=== PATIENT | female | born 1965 | race Caucasian/White ===

== ENCOUNTER → 2016-03-21 | Outpatient (CLI) | payer BC, OTHER ==
[~2016-03-21] MED LIST: ALBU1AER9 INH; CETI10TA84 PO; FLVHFA110 INH; MDRDP21 PO; MONT1TAB3 PO; OMEP40CA PO; OMEP40CA41 PO; ONDA4TAB9 PO; SYMIN160 INH; VNTHFA/IN INH
== END | disposition home or self-care (01) ==
LOC: C.RDSM 15:04
PROVIDERS: ATTEND Physical Medicine & Rehabilitation Sports Medicine
DX: M24.152 Other articular cartilage disorders, left hip (principal)

== ENCOUNTER → 2016-04-11 | Outpatient (CLI) | payer BC ==
--- NOTE | 2016-04-12 08:03 | MAMMOGRAPHY REPORT ---
BILATERAL DIGITAL SCREENING MAMMOGRAM TOMOSYNTHESIS WITH CAD: 04/11/2016 CLINICAL HISTORY: Routine screening examination. TECHNIQUE: Breast tomosynthesis in addition to standard 2D mammography was performed. Current study was also evaluated with a Computer Aided Detection (CAD) system. COMPARISON: Comparison is made to exam dated: 04/08/2015 mammogram - [facility]. BREAST COMPOSITION: There are scattered areas of fibroglandular density in both breasts. FINDINGS: The parenchymal pattern is unchanged. No developing mass, architectural distortion or clu ster of suspicious microcalcifications is seen in either breast. IMPRESSION: ACR BI-RADS CATEGORY 2: BENIGN There is no mammographic evidence of malignancy. A 1 year screening mammogram is recommended. The p atient will receive written notification of the results. Approximately 10% of breast cancers are not detected with mammography. A negative mammographic repor t should not delay biopsy if a clinically suggestive mass is present. Celine Roman M.D. ay/:04/11/2016 22:27:05 Corporate Communications Specialist: Janette HOWARD)(Cristobal), [facility] letter sent: Normal 1/2 BI-RADS Code: ACR BI-RADS Category 2: Benign
== END | disposition home or self-care (01) ==
LOC: C.MAMM 16:29
PROVIDERS: ATTEND Obstetrics & Gynecology
DX: Z12.31 Encounter for screening mammogram for malignant neoplasm of breast (principal)

== ENCOUNTER → 2016-05-27 | Outpatient (CLI) | payer BC | END | disposition home or self-care (01) | LOC: C.PATHSPEC 11:08 | PROVIDERS: ATTEND Dentist General Practice | DX: L81.8 Other specified disorders of pigmentation (principal) ==

== ENCOUNTER 2016-07-14 13:32 | Emergency (ER) | payer BC ==
[~2016-07-14] VITALS: Ht 162.6 cm; Wt 104.0 kg
[~2016-07-14 13:32] MED LIST changes: -MDRDP21 PO; -OMEP40CA41 PO; -ONDA4TAB9 PO; -SYMIN160 INH; -VNTHFA/IN INH
[2016-07-14 13:44] VITALS: Ht 162.6 cm; Wt 104.0 kg
[2016-07-14] MEDS ORDERED: SODIUM CHLORIDE 0.9% 1000ML 1,000 ML IV STA (14:37)
--- NOTE | 2016-07-14 14:45 | EMERGENCY ROOM VISIT NOTE ---
History Report prepared by Jean: Zane Frank Under the Supervision of: Dr. Masoud Carolina D.O. First contact with patient: 14:30 Chief Complaint: CHEST PAIN Stated Complaint: CHEST, NECK AND BACK PAIN Nursing Triage Summary: pt c/o midsternal chest pain since last night. today pt c/o heaviness/tightness to chest and pain radiated to neck and left shoulderblade. pt also c/o SOB History of Present Illness The patient is a 50 year old female who presents to the Emergency Room with complaints of persistent chest pain that started last night. She says that she was having a lot of stress in her house last night, as her children were not listening, and there was a lot of yelling. The patient states that she went to bed having a dull, aching pain in her chest, but thought it was just from the stress. She then woke up this morning and was still uncomfortable. She went to work, and had intermittent little sharp pains in her chest, and into her shoulder blades. The patient says that her current pain is a 1 out of 10 in severity. She states that nothing makes the pain worse. She adds that she had a BBQ at work today, and started to feel nauseous and felt like she was going to vomit. The patient says that she got bad sharp pains between her breasts, and was then brought here. She adds that for the past week or so, she has had more shortness of breath with exertion. The patient says that she has a history of asthma, but this shortness of breath is not from her asthma. She denies any fevers, chills, abdominal pain, or new leg pain. The patient says she gets occasional heart palpitations. She has a history of a cholecystectomy. The patient has no history of blood clots. Source of History: patient Onset: Last night Position: chest Symptom Intensity: currently 1/10 Quality: ache, sharp, dull Timing: other (persistent) Associated Symptoms: + SOB (on exertion), + nausea, + back pain, No fevers, No chills, No abdominal pain Note: Associated symptoms: Steele like vomiting after eating earlier today. Denies new leg pain. Review of Systems See HPI for pertinent positives & negatives. A total of 10 systems reviewed and were otherwise negative. Past Medical & Surgical Medical Problems: (1) Asthma (2) Cholecystectomy (3) Heartburn (4) Spontaneous miscarriage (5) Spontaneous miscarriage (6) Tonsillectomy Surgical Problems: (1) History of thyroidectomy, subtotal Family History No pertinent family history Social History Smoking Status: Former Smoker Alcohol Use: occasionally Marital Status: in relationship Housing Status: lives with family Occupation Status: employed Current/Historical Medications Scheduled Albuterol Hfa (Ventolin Hfa), 1-2 PUFFS INH TID Budesonide/Formoterol Fumarate (Symbicort 160/4.5 Inhaler), 2 PUFFS INH BID Cetirizine (Zyrtec), 10 MG PO QPM Methylprednisolone (Methylprednisolone Dose P), 1 DOSE PO UD Montelukast Sodium (Singulair), 10 MG PO QPM Omeprazole (Prilosec), 40 MG PO DAILY Ondansetron (Ondansetron HCl), 1 TAB PO Q6H Allergies Coded Allergies: Adhesives (Verified Allergy, Unknown, red,raw,itchy skin, 07/14/16) Aspirin (Verified Allergy, Unknown, hives, 07/14/16) Penicillins (Unverified Allergy, Unknown, unknown, 07/14/16) Physical Exam Vital Signs Date Time Temp Pulse Resp B/P (MAP) Pulse Ox O2 Delivery O2 Flow Rate FiO2 07/14/16 17:10 37.6 98 20 146/99 95 07/14/16 15:06 125/90 07/14/16 15:02 99 19 07/14/16 14:49 95 Room Air 07/14/16 14:32 98 19 07/14/16 14:20 104 07/14/16 13:44 37.6 102 20 158/85 95 Room Air 07/14/16 13:44 96 Room Air Physical Exam GENERAL: Patient is awake, alert, and in no acute distress. Patient is resting comfortably and showing no signs of anxiety EYES: The conjunctivae are clear. The pupils are round and reactive. EARS, NOSE, MOUTH AND THROAT: The nose is without any evidence of any deformity. Mucous membranes are moist tongue is midline NECK: The neck is nontender and supple. RESPIRATORY: Normal respiratory effort is noted there is no evidence of wheezing rhonchi or rales CARDIOVASCULAR: Heart sounds are tachycardic but regular, no definite murmur noted to auscultation. GASTROINTESTINAL: The abdomen is soft. Bowel sounds are present in all quadrants. Abdomen is nontender MUSCULOSKELETAL/EXTREMITIES: There is no evidence of gross deformity full range of motion is noted in the hips and shoulders SKIN: No pedal edema noted, no calf tenderness elicited. NEUROLOGIC: Patient is awake alert and oriented x3. Medical Decision & Procedures ER Provider Diagnostic Interpretation: Radiology results as stated below per my review and radiologist interpretation: CHEST ONE VIEW PORTABLE CLINICAL HISTORY: Respiratory distress. Dyspnea. COMPARISON STUDY: Chest radiograph and chest CT February 17, 2015. FINDINGS: Lung volumes are normal. There is no consolidation or evidence of pulmonary edema. Cardiac size is normal. Mediastinal contours are normal. There is no evidence of pulmonary edema. IMPRESSION: No acute cardiopulmonary findings. Electronically signed by: Hi Riggs M.D. 07/14/2016 3:06 PM Dictated Date/Time: 07/14/2016 3:[address] ANGIOGRAM OF THE CHEST CLINICAL HISTORY: MIDSTERNAL CHEST PAIN AND SHORTNESS OF BREATH.. COMPARISON STUDY: 02/17/2015 TECHNIQUE: Following the IV administration of 118 mL of Optiray-320, CT angiogram of the thorax was performed from the thoracic inlet to the lung bases utilizing the pulmonary embolus protocol. Images are reviewed in the axial, sagittal, and coronal planes. IV contrast was administered without complication. MIP imaging was performed. CT DOSE: 592.44 mGy.cm FINDINGS: No pathologically enlarged axillary mediastinal or hilar lymph nodes were visualized. There was no evidence of thoracic aortic dilatation. There were no pulmonary artery filling defects to indicate acute pulmonary embolism. No pleural effusions are visualized. There was no evidence of focal pulmonary consolidation. IMPRESSION: No acute intrathoracic findings. No evidence of acute pulmonary embolism. No evidence of acute parenchymal consolidation. Electronically signed by: Best Blacnas M.D. 07/14/2016 3:32 PM Dictated Date/Time: 07/14/2016 3:28 PM Laboratory Results 07/14/16 14:18 Red Blood Count 5.00, Mean Corpuscular Volume 87.8, Mean Corpuscular Hemoglobin 29.6, Mean Corpuscular Hemoglobin Concent 33.7, Mean Platelet Volume 10.9, Neutrophils (%) (Auto) 81.6, Lymphocytes (%) (Auto) 12.4, Monocytes (%) (Auto) 5.4, Eosinophils (%) (Auto) 0.1, Basophils (%) (Auto) 0.3, Neutrophils # (Auto) 10.41, Lymphocytes # (Auto) 1.58, Monocytes # (Auto) 0.69, Eosinophils # (Auto) 0.01, Basophils # (Auto) 0.04 07/14/16 14:18 Test 07/14/16 00:00 07/14/16 14:18 07/14/16 14:21 07/14/16 14:49 Urine Color YELLOW Urine Appearance CLEAR (CLEAR) Urine pH 6.5 (4.5-7.5) Urine Specific [place] > 1.045 (1.000-1.030) Urine Protein NEG (NEG) Urine Glucose (UA) NEG (NEG) Urine Ketones NEG (NEG) Urine Occult Blood NEG (NEG) Urine Nitrite NEG (NEG) Urine Bilirubin NEG (NEG) Urine Urobilinogen NEG (NEG) Urine Leukocyte Esterase TRACE (NEG) Urine WBC (Auto) 10-30 /hpf (0-5) Urine RBC (Auto) 0-4 /hpf (0-4) Urine Hyaline Casts (Auto) 1-5 /lpf (0-5) Urine Epithelial Cells (Auto) >30 /lpf (0-5) Urine Bacteria (Auto) 1+ (NEG) White Blood Count 12.76 K/uL (4.8-10.8) Red Blood Count 5.00 M/uL (4.2-5.4) Hemoglobin 14.8 g/dL (12.0-16.0) Hematocrit 43.9 % (37-47) Mean Corpuscular Volume 87.8 fL (80-100) Mean Corpuscular Hemoglobin 29.6 pg (25-34) Mean Corpuscular Hemoglobin Concent 33.7 g/dl (32-36) Platelet Count 324 K/uL (130-400) Mean Platelet Volume 10.9 fL (7.4-10.4) Neutrophils (%) (Auto) 81.6 % Lymphocytes (%) (Auto) 12.4 % Monocytes (%) (Auto) 5.4 % Eosinophils (%) (Auto) 0.1 % Basophils (%) (Auto) 0.3 % Neutrophils # (Auto) 10.41 K/uL (1.4-6.5) Lymphocytes # (Auto) 1.58 K/uL (1.2-3.4) Monocytes # (Auto) 0.69 K/uL (0.11-0.59) Eosinophils # (Auto) 0.01 K/uL (0-0.5) Basophils # (Auto) 0.04 K/uL (0-0.2) RDW Standard Deviation 42.3 fL (36.4-46.3) RDW Coefficient of Variation 13.1 % (11.5-14.5) Immature Granulocyte % (Auto) 0.2 % Immature Granulocyte # (Auto) 0.03 K/uL (0.00-0.02) Prothrombin Time 11.4 SECONDS (9.0-12.0) Prothromb Time International Ratio 1.1 (0.9-1.1) Activated Partial Thromboplast Time 25.5 SECONDS (21.0-31.0) Partial Thromboplastin Ratio 1.0 Anion Gap 10.0 mmol/L (3-11) Est Creatinine Clear Calc Drug Dose 67.4 ml/min Estimated GFR () 61.9 Estimated GFR (Non- 53.4 BUN/Creatinine Ratio 12.9 (10-20) Calcium Level 8.2 mg/dl (8.5-10.1) Total Bilirubin 0.3 mg/dl (0.2-1) Aspartate Amino Transf (AST/SGOT) 16 U/L (15-37) Alanine Aminotransferase (ALT/SGPT) 28 U/L (12-78) Alkaline Phosphatase 97 U/L (45-117) Troponin I < 0.015 ng/ml (0-0.045) Total Protein 7.7 gm/dl (6.4-8.2) Albumin 3.7 gm/dl (3.4-5.0) Globulin 4.0 gm/dl (2.5-4.0) Albumin/Globulin Ratio 0.9 (0.9-2) Human Chorionic Gonadotropin, Qual NEG (NEG) Bedside Troponin I < 0.030 ng/ml (0-0.045) Bedside D-Dimer > 450 ng/mlFEU (0-450) Laboratory results per my review. Medications Administered Medications (Trade) Dose Ordered Sig/Tolu Route Start Time Stop Time Status Last Admin Dose Admin Sodium Chloride 1,000 ml @ 999 mls/hr Q1H1M STAT IV 07/14/16 14:37 07/14/16 15:37 DC 07/14/16 14:37 999 MLS/HR ECG Indication: chest pain Rate (beats per minute): 106 Rhythm: sinus tachycardia Findings: no ectopy, other (no acute ST segment abnormalities) Comparison ECG Date: increased rate otherwise no significant change from January 10 of last year ED Course 1432: The patient was evaluated in room C2B. A complete history and physical examination were performed. 1437: Ordered NSS 1000 ml @ 999 mls/hr IV. 1557: I reevaluated the patient and updated her. 165: Upon reevaluation, the patient is resting comfortably. I discussed the results and treatment plan with her. She verbalized agreement of the treatment plan. She was discharged home. Medical Decision Prior records/ancillary studies reviewed. Triage Nursing notes reviewed. Differential diagnosis: Etiologies such as cardiac ischemia, aortic dissection, pulmonary embolism, pneumonia, pneumothorax, musculoskeletal, infections, pericarditis, myocarditis , esophageal rupture, gastrointestinal, as well as others were entertained. Medication Reconciliation: I attest that I have personally reviewed the patient' s current medications list. Blood pressure screening: Patient was found to have normal blood pressure on screening and does not require follow-up. The patient has a heart score of 2. The patient is a 50-year-old female who presented to the emergency department for evaluation of chest pain. The patient states that she had significant anxiety and afterwards noticed an onset of chest pain. The patient had symptoms for greater than 24 hours. The patient was treated with IV fluids in the emergency department. She was reevaluated multiple times. The patient also complained of chest pain which was worsened with inspiration. This reason a d- dimer was ordered which was elevated. CT the chest did not show any acute pulmonary embolism. I discussed the patient's laboratory and radiographic studies with her. I also discussed the limitations of the emergency department workup for chest pain with her. At this time I feel she is low risk. I feel she can follow-up with with her primary care physician as an outpatient and then further cardiac study if necessary. She was encouraged to avoid any strenuous activity and return to emergency department immediately if symptoms change worsen or the need arises. Impression Primary Impression: Chest pain Scribe Attestation The scribe's documentation has been prepared under my direction and personally reviewed by me in its entirety. I confirm that the note above accurately reflects all work, treatment, procedures, and medical decision making performed by me. Departure Information Dispostion Home / Self-Care Referrals Vinicius Meeks, Jacinto.[facility]. (PCP) Patient Instructions ED Chest Pain Atypical Unkn Cause, My [facility] Additional Instructions Follow-up with your primary care physician tomorrow as scheduled. Rest and avoid any strenuous activity. Return to the emergency department immediately if symptoms change worsen or the need arises. Problem Qualifiers Primary Impression: Chest pain Chest pain type: unspecified Qualified Codes: R07.9 - Chest pain, unspecified
[2016-07-14 14:46] LABS: BASO % 0.3 %; BASO ABS # 0.04 K/uL (0-0.2); COMPLETE YES; EOS % 0.1 %; HEMATOCRIT 43.9 % (37-47); IG% 0.2 %; LYMPH % 12.4 %; LYMPH ABS # 1.58 K/uL (1.2-3.4); MEAN CELL VOLUME 87.8 fL (80-100); MEAN CORPUSCULAR HEMOGLOBIN 29.6 pg (25-34); MEAN CORPUSCULAR HGB CONC 33.7 g/dl (32-36); MEAN PLATELET VOLUME 10.9 fL (7.4-10.4); MONO % 5.4 %; NEUT % 81.6 %; PLATELET COUNT 324 K/uL (130-400); WHITE BLOOD COUNT 12.76 K/uL (4.8-10.8)
[2016-07-14 14:49] VITALS: O2SAT 95
[2016-07-14 14:52] LABS: PREG INTERNAL NEGATIVE QC NEG CLEAR BACKGROUND; PREG INTERNAL POSITIVE QC POS CONTROL LINE
[2016-07-14 14:53] LABS: ALT/SGPT 28 U/L (12-78); AST/SGOT 16 U/L (15-37); BLOOD UREA NITROGEN 15 mg/dl (7-18); BUN/CREATININE RATIO 12.9 (10-20); CALCIUM 8.2 mg/dl (8.5-10.1); CARBON DIOXIDE 25 mmol/L (21-32); CHLORIDE 109 mmol/L (98-107); GLUCOSE 116 mg/dl (70-99); POTASSIUM 3.5 mmol/L (3.5-5.1); SODIUM 144 mmol/L (136-145)
[2016-07-14 14:58] LABS: ALB/GLOB RATIO 0.9 (0.9-2); ALKALINE PHOSPHATASE 97 U/L (45-117)
[2016-07-14 14:59] LABS: INR 1.1 (0.9-1.1); PROTHROMBIN TIME (PATIENT) 11.4 SECONDS (9.0-12.0)
[2016-07-14] MEDS ORDERED: OMEP40CA41 PO (15:03)
[2016-07-14] MEDS ORDERED: ONDA4TAB9 PO (15:03)
[2016-07-14] MEDS ORDERED: VNTHFA/IN INH (15:03)
[2016-07-14] MEDS ORDERED: SYMIN160 INH (15:03)
[2016-07-14] MEDS ORDERED: MDRDP21 PO (15:04)
--- NOTE | 2016-07-14 15:07 | DIAGNOSTIC IMAGING REPORT ---
CHEST ONE VIEW PORTABLE CLINICAL HISTORY: Respiratory distress. Dyspnea. COMPARISON STUDY: Chest radiograph and chest CT February 17, 2015. FINDINGS: Lung volumes are normal. There is no consolidation or evidence of pulmonary edema. Cardiac size is normal. Mediastinal contours are normal. There is no evidence of pulmonary edema. IMPRESSION: No acute cardiopulmonary findings. Electronically signed by: Hi Riggs M.D. 07/14/2016 3:06 PM Dictated Date/Time: 07/14/2016 3:05 PM
[2016-07-14] MEDS ORDERED: OPTIRAY 320 IV PRN (15:15)
--- NOTE | 2016-07-14 15:33 | DIAGNOSTIC IMAGING REPORT ---
CT ANGIOGRAM OF THE CHEST CLINICAL HISTORY: MIDSTERNAL CHEST PAIN AND SHORTNESS OF BREATH.. COMPARISON STUDY: 02/17/2015 TECHNIQUE: Following the IV administration of 118 mL of Optiray-320, CT angiogram of the thorax was performed from the thoracic inlet to the lung bases utilizing the pulmonary embolus protocol. Images are reviewed in the axial, sagittal, and coronal planes. IV contrast was administered without complication. MIP imaging was performed. CT DOSE: 592.44 mGy.cm FINDINGS: No pathologically enlarged axillary mediastinal or hilar lymph nodes were visualized. There was no evidence of thoracic aortic dilatation. There were no pulmonary artery filling defects to indicate acute pulmonary embolism. No pleural effusions are visualized. There was no evidence of focal pulmonary consolidation. IMPRESSION: No acute intrathoracic findings. No evidence of acute pulmonary embolism. No evidence of acute parenchymal consolidation. Electronically signed by: Best Blancas M.D. 07/14/2016 3:32 PM Dictated Date/Time: 07/14/2016 3:28 PM
[2016-07-14 17:09] LABS: URINE APPEARANCE CLEAR (CLEAR); URINE BILIRUBIN NEG (NEG); URINE COLOR YELLOW; URINE EPITHELIAL CELL AUTO >30 /lpf (0-5); URINE NITRITE NEG (NEG); URINE PH 6.5 (4.5-7.5); URINE SPECIFIC GRAVITY > 1.045 (1.000-1.030); UROBILINOGEN NEG (NEG)
[2016-07-14 17:10] VITALS: BP 146/99; PULSE 98; TEMP 37.6; O2SAT 95
[2016-07-14 17:17] LABS: MANUAL MICROSCOPIC REQUIRED? NO; REVIEW REQ? NO
== END 2016-07-14 17:11 | disposition home or self-care (01) ==
LOC: C.EDB 13:35 → C.EDC 17:11
DX: R07.9 Chest pain, unspecified (principal); R00.0 Tachycardia, unspecified; J45.909 Unspecified asthma, uncomplicated; Z90.49 Acquired absence of other specified parts of digestive tract; Z98.890 Other specified postprocedural states; Z87.891 Personal history of nicotine dependence; Z79.899 Other long term (current) drug therapy; Z88.0 Allergy status to penicillin; Z88.6 Allergy status to analgesic agent; Z91.09 Other allergy status, other than to drugs and biological substances

== ENCOUNTER → 2017-03-05 | Outpatient (CLI) | payer OTHER ==
[~2017-03-05] MED LIST changes: -ALBU1AER9 INH; -FLVHFA110 INH; +MDRDP21 PO; -OMEP40CA PO; +OMEP40CA41 PO; +ONDA4TAB9 PO; +SYMIN160 INH; +VNTHFA/IN INH
--- NOTE | 2017-03-05 14:38 | DIAGNOSTIC IMAGING REPORT ---
THORACIC SPINE 3 VIEWS ROUTINE CLINICAL HISTORY: RIGHT LUMBAR PAIN,LOW BACK PAIN COMPARISON STUDY: Chest CT July 14, 2016. FINDINGS: Alignment of the thoracic spine is anatomic. Vertebral body heights are maintained. Disc spaces are preserved. There is mild multilevel endplate osteophytosis. IMPRESSION: 1. No acute thoracic spine fracture or subluxation. 2. Minimal multilevel degenerative disc disease of the thoracic spine. Electronically signed by: Hi Riggs M.D. 03/05/2017 2:37 PM Dictated Date/Time: 03/05/2017 2:35 PM
--- NOTE | 2017-03-05 14:39 | DIAGNOSTIC IMAGING REPORT ---
L-SPINE MIN 4 VIEWS ROUTINE CLINICAL HISTORY: RIGHT LUMBAR PAIN,LOW BACK PAIN COMPARISON: None FINDINGS: Incidental note is made of cholecystectomy clips and an intrauterine device. Vertebral body heights are maintained. No fracture or suspicious lesion is present. There is mild disc space narrowing and osteophytosis at L5-S1. There is mild multilevel osteophytosis within the lumbar spine. IMPRESSION: 1. No lumbar spine fracture. 2. Mild multilevel degenerative disc disease. Electronically signed by: Hi Riggs M.D. 03/05/2017 2:38 PM Dictated Date/Time: 03/05/2017 2:37 PM
== END | disposition home or self-care (01) ==
LOC: C.RAD 13:30
PROVIDERS: ATTEND Student in an Organized Health Care Education/Training Program
DX: M54.5 Low back pain (principal); M51.36 Other intervertebral disc degeneration, lumbar region; M51.34 Other intervertebral disc degeneration, thoracic region

== ENCOUNTER → 2017-03-08 | Outpatient (CLI) | payer OTHER | END | disposition home or self-care (01) | LOC: C.LABSPEC 13:39 | PROVIDERS: ATTEND Obstetrics & Gynecology | DX: N89.8 Other specified noninflammatory disorders of vagina (principal) ==

== ENCOUNTER → 2017-03-08 | Outpatient (CLI) | payer OTHER | END | disposition home or self-care (01) | LOC: C.PAPS 11:32 | PROVIDERS: ATTEND Obstetrics & Gynecology | DX: Z12.4 Encounter for screening for malignant neoplasm of cervix (principal) ==

== ENCOUNTER → 2017-05-01 | Day surgery (SDC) | payer OTHER ==
[2017-04-04 15:13] VITALS: Ht 162.6 cm; Wt 106.8 kg
[~2017-05-01] VITALS: Ht 162.6 cm; Wt 106.8 kg
[~2017-05-01] MED LIST changes: +ALBU18002 INH; +ATROPINE SULFATE 0.1 MG/ML 5ML SYR IV PRN; +DEXAMETHASONE SOD INJ 4 MG/ML VIAL ONE; +EpHEDrine SULFATE INJ 50 MG/ML AMP IV PRN; +FENTANYL CITRATE INJ 50 MCG/1 ML 2 ML VIAL ONE; +HYDROmorphone INJ 1 MG/ML SYR IV PRN; +IBUPROFEN 600 MG TAB PO PRN; +KETOROLAC TROMETHAMINE 30 MG/ML VIAL IV. PRN; +KETOROLAC TROMETHAMINE 30 MG/ML VIAL ONE; +LABETALOL HCL IV 5 MG/ML 20ML IV PRN; +LACTATED RINGER'S 1000ML 1,000 ML IV SCH; +LIDOCAINE HCL 2% 2 ML VIAL (20MG/ML) ONE; +LISI40TA PO; -MDRDP21 PO; +MELA1TAB5 PO; +MIDAZOLAM HCL 1 MG/ML 2ML VIAL ONE; -ONDA4TAB9 PO; +ONDANSETRON INJ 2 MG/ML 2 ML VIAL IV PRN; +ONDANSETRON INJ 2 MG/ML 2 ML VIAL ONE; +OXYCODONE/ACETAMINOPHEN 5-325 TAB PO PRN; +PHENYLEPHRINE 100MCG/ML 5ML SYR IV PRN; +PROMETHAZINE HCL INJ 12.5 MG in SODIUM CHLORIDE 0.9% 50ML 50 ML IV PRN; +PROMETHAZINE HCL INJ 25 MG in SODIUM CHLORIDE 0.9% 50ML 50 ML IV PRN; +PROPOFOL IV EMULSION 10 MG/ML 20 ML VIAL IV ONE; +SODIUM CHLORIDE 0.9% 1000ML 1,000 ML IV SCH; +SUCCINYLCHOLINE CHLORIDE 20 MG/ML 10 ML VIAL IV ONE; -VNTHFA/IN INH
--- NOTE | 2017-05-01 06:59 | History & Physical Bridge - SC ---
H&P Re-Evaluation Bridge Note: I have examined the patient, reviewed the History & Physical and in the interval since the performance of the History & Physical I have noted the following changes of clinical significance: No changes noted
--- NOTE | 2017-05-01 07:34 | [facility] Post Operative Brief Note ---
Immediate Operative Summary Operative Date May 01, 2017. Pre-Operative Diagnosis IUD strings lost Post-Operative Diagnosis SAME Procedure(s) Performed Dilatation And Curettage, Hysteroscopy, Removal Of Intra Uterine Device Surgeon Dr. Colon Associate Editor Surgeon(s) none Estimated Blood Loss 5 cc Findings Consistent with Post-Op Diagnosis Specimens A:Endometrial Curettings Drains None Anesthesia Type General Complication(s) none Disposition Accompanied Pt To Recovery: yes Disposition: Recovery Room / PACU
--- NOTE | 2017-05-01 07:47 | Discharge Instructions-SurgCtr ---
Discharge Instructions Date of Service May 01, 2017. Visit Reason for Visit: Iud Strings Lost Discharge Discharge Diagnosis / Problem: Lost IUD strings Discharge Goals Goal(s): Therapeutic intervention Activity Recommendations Activity Limitations: per Instructions/Follow-up section Anesthesia . Post Anesthesia Instructions: If you have had General Anesthesia or IV Sedation: * Do not drive today. * Resume driving when surgeon permits. * Do not make important decisions or sign legal documents today. * Call surgeon for: 1. Temperature elevations greater than 101 degrees F. 2. Uncontrollable pain. 3. Excessive bleeding. 4. Persistent nausea and vomiting. 5. Medication intolerance (nausea, vomiting or rash). * For nausea and vomiting use only clear liquids such as: tea, soda, bouillon until nausea subsides, then gradually increase diet as tolerated. * If you have any concerns or questions, call your surgeon's office. If physician is unavailable and it is an emergency, call 911 or go to the nearest emergency room. . Instructions / Follow-Up Instructions / Follow-Up ACTIVITY RECOMMENDATIONS: * Avoid tampons, douching, hot tubs, pools, and intercourse until bleeding has stopped. * May shower as usual. * No strenuous activity for 24-48 hours. After 24-48 hours, you may do anything you feel like doing (driving and sports are okay). SPECIAL CARE INSTRUCTIONS: Special Diet: * Mild nausea may occur in the immediate post-operative period. * Take clear liquids such as tea, cola or bouillon until all nausea has subsided; you may then resume your normal diet. Special Care: * Light bleeding and vaginal spotting can last from a few days to 3-4 weeks. Call your doctor if bleeding becomes heavier than the heaviest part of your period. * Check your temperature twice a day for one week. If it goes above 100.4 degrees Fahrenheit (38.0 Celsius), notify your doctor. * Call your doctor's office for an appointment for 6 weeks after your surgery. FOLLOW-UP VISIT: Call your doctor's office for an appointment for 6 weeks after your surgery. Diet Recommendations Home Diet: resume previous diet Procedures Procedures Performed: Dilatation And Curettage, Hysteroscopy, Removal Of Intra Uterine Device Pending Studies Studies pending at discharge: no Medical Emergencies . Who to Call and When: Medical Emergencies: If at any time you feel your situation is an emergency, please call 911 immediately. . Non-Emergent Contact Non-Emergency issues call your: [employer] . . "Provider Documentation" section prepared by Layne Antunez .
[2017-05-01] MEDS: FENTANYL CITRATE INJ 50 MCG/1 ML 2 ML VIAL IV PRN ×2 (07:48→08:00)
--- NOTE | 2017-05-01 08:15 | OPERATIVE REPORT ---
DATE OF OPERATION: 05/01/2017 PREOPERATIVE DIAGNOSES: Lost intrauterine device strings and abnormal uterine bleeding. POSTOPERATIVE DIAGNOSES: Same. PROCEDURE: Removal of IUD, D&C and hysteroscopy. ANESTHESIA: General. BLOOD LOSS: 5 mL. HISTORY OF PRESENT ILLNESS: The patient is a 51-year-old multiparous white female who presented with a history of irregular bleeding and also questionable symptoms of pseudotumor cerebri so she is requesting removal of the IUD; however, in the office the IUD strings could not be found. Apparently there is an association between pseudotumor cerebri and Mirena IUDs. She is now scheduled for IUD removal and D&C hysteroscopy as the patient has been having more irregular erratic spotting and bleeding issues. She understands the risks of procedure and is willing to proceed. GROSS FINDINGS: Uterus is small, mobile and without any masses. The adnexa are also without masses. There is a second degree cystocele present. Cervix is somewhat stenotic. Under direct hysteroscopic evaluation, the uterine cavity was noted to be normal. Both tubal os's could be identified and were in normal position. The hysteroscopy and D&C were done after the IUD removal. DESCRIPTION OF THE PROCEDURE: After the patient received adequate general anesthetic, she was prepped and draped in usual sterile fashion. After bladder was emptied, a weighted speculum was placed in the vagina and the anterior lip of the cervix was grasped with single tooth tenaculum. The cervix was then dilated to a #21 Hanks dilator. Polyp forceps were then used to grasp the IUD and it was removed in its entirety. The hysteroscope was then inserted and findings were noted as above. Sharp curettage of the uterine cavity was then performed and small amount of curettings were obtained. Bleeding at the tenaculum site was secured with an Allis clamp. The patient tolerated the procedure well. There was a 45 mL deficit of normal saline that was used as expanding medium during the hysteroscopy. I attest to the content of the Intraoperative Record and any orders documented therein. Any exception s are noted below.
[2017-05-01 08:45] VITALS: TEMP 37.3
--- NOTE | 2017-05-01 08:57 | Anesthesia Progress Nt - [facility] ---
Anesthesia Post Op Note Date & Time May 01, 2017 at 08:57 Vital Signs Pain Intensity: 0 Vital Signs Past 12 Hours Date Time Temp Pulse Resp B/P (MAP) Pulse Ox O2 Delivery O2 Flow Rate FiO2 05/01/17 08:27 74 22 05/01/17 08:27 74 22 94 05/01/17 08:26 145/68 05/01/17 08:23 36.7 83 20 118/79 94 Room Air 05/01/17 08:22 83 21 05/01/17 08:22 82 21 94 05/01/17 08:21 118/79 05/01/17 08:17 69 15 05/01/17 08:17 68 15 93 05/01/17 08:16 116/78 05/01/17 08:12 71 15 93 05/01/17 08:12 73 15 05/01/17 08:11 142/78 05/01/17 08:07 77 15 97 05/01/17 08:07 77 15 05/01/17 08:06 114/77 05/01/17 08:02 82 16 05/01/17 08:02 82 16 100 05/01/17 08:01 125/74 05/01/17 07:57 79 27 99 05/01/17 07:57 78 27 05/01/17 07:56 111/73 05/01/17 07:53 129/77 05/01/17 07:52 88 25 99 05/01/17 07:52 87 25 05/01/17 07:47 94 21 05/01/17 07:47 93 21 136/77 98 05/01/17 07:42 86 20 131/75 98 05/01/17 07:42 87 20 05/01/17 07:39 144/88 05/01/17 07:37 37.0 97 20 144/88 97 Mask 6 05/01/17 06:40 36.9 85 16 134/94 (107) 95 Room Air Notes Mental Status: alert / awake / arousable, participated in evaluation Pt Amnestic to Procedure: Yes Nausea / Vomiting: adequately controlled Pain: adequately controlled Airway Patency, RR, SpO2: stable & adequate BP & HR: stable & adequate Hydration State: stable & adequate Anesthetic Complications: no major complications apparent
[2017-05-01 09:17] VITALS: BP 146/88; PULSE 73; O2SAT 99
== END | disposition home or self-care (01) ==
LOC: X.SURG 06:17
PROVIDERS: ATTEND Obstetrics & Gynecology
DX: T83.32XA Displacement of intrauterine contraceptive device, initial encounter (principal); Y83.1 Surgical operation with implant of artificial internal device as the cause of abnormal reaction of the patient, or of later complication, without mention of misadventure at the time of the procedure; I10 Essential (primary) hypertension; K21.9 Gastro-esophageal reflux disease without esophagitis; J45.909 Unspecified asthma, uncomplicated; G47.33 Obstructive sleep apnea (adult) (pediatric); E55.9 Vitamin D deficiency, unspecified; E66.9 Obesity, unspecified; Z68.41 Body mass index [BMI] 40.0-44.9, adult; Z87.891 Personal history of nicotine dependence; Z88.6 Allergy status to analgesic agent; Z88.0 Allergy status to penicillin; Z88.5 Allergy status to narcotic agent; Z83.3 Family history of diabetes mellitus; Z82.3 Family history of stroke

== ENCOUNTER 2020-10-07 05:08 | Observation (INO) ==
--- NOTE | 2020-09-28 10:55 | PAT Medication Instructions ---
Medication Instructions Date of Service September 28, 2020 Home Medications Medication Instructions Recorded budesonide-formoterol HFA 160 2 puff INHALATION BID #10.2 g 12/23/19 mcg-4.5 mcg/actuation aerosol inhaler montelukast 10 mg tablet 10 mg PO HS #90 tab 01/01/20 omeprazole 40 mg capsule,delayed 40 mg PO HS #90 cap 01/01/20 release bupropion HCl 150 mg 24 hr tablet, 300 mg PO QAM #60 tab 08/03/20 extended release (Wellbutrin XL) levothyroxine 75 mcg tablet 75 mcg PO QAM #30 tab 08/04/20 ProAir HFA 90 mcg/actuation 2 puff INHALATION Q4H PRN #8.5 g NS 08/18/20 aerosol inhaler (albuterol sulfate) cetirizine 10 mg tablet (Zyrtec) 10 mg PO HS budesonide-formoterol HFA 160 mcg-4.5 mcg/actuation aerosol inhaler 2 puff INHALATION BID montelukast 10 mg tablet 10 mg PO HS omeprazole 40 mg capsule,delayed release 40 mg PO HS clobetasol 0.05 % topical ointment 1 applic TOPICAL UD PRN valacyclovir 500 mg tablet (Valtrex) 500 mg PO QAM methocarbamol 750 mg tablet 750 mg PO UD PRN bupropion HCl 150 mg 24 hr tablet, extended release (Wellbutrin XL) 300 mg PO QAM levothyroxine 75 mcg tablet 75 mcg PO QAM ProAir HFA 90 mcg/actuation aerosol inhaler (albuterol sulfate) 2 puff INHALATION Q4H PRN STOP taking 24 hours before surgery clobetasol 0.05 % topical ointment 1 applic TOPICAL UD PRN DO NOT take the morning of surgery methocarbamol 750 mg tablet 750 mg PO UD PRN Take morning of surgery With a small sip of water, OTHERWISE NOTHING TO EAT OR DRINK AFTER MIDNIGHT: budesonide-formoterol HFA 160 mcg-4.5 mcg/actuation aerosol inhaler 2 puff INHALATION BID valacyclovir 500 mg tablet (Valtrex) 500 mg PO QAM bupropion HCl 150 mg 24 hr tablet, extended release (Wellbutrin XL) 300 mg PO QAM levothyroxine 75 mcg tablet 75 mcg PO QAM ProAir HFA 90 mcg/actuation aerosol inhaler (albuterol sulfate) 2 puff INHALATION Q4H PRN (if needed) Take evening before surgery cetirizine 10 mg tablet (Zyrtec) 10 mg PO HS budesonide-formoterol HFA 160 mcg-4.5 mcg/actuation aerosol inhaler 2 puff INHALATION BID montelukast 10 mg tablet 10 mg PO HS omeprazole 40 mg capsule,delayed release 40 mg PO HS methocarbamol 750 mg tablet 750 mg PO UD PRN (if needed) ProAir HFA 90 mcg/actuation aerosol inhaler (albuterol sulfate) 2 puff INHALATION Q4H PRN (if needed) Other Notes If you have any questions please call us at [phone] or [phone] or [phone] or [phone]
--- NOTE | 2020-09-29 08:21 | Anesthesiology Consultation ---
Date of Service September 29, 2020 Assessment & Plan (1) Encounter for pre-operative examination: - COVID screening: Per assessment on 09/29: Travel screen negative, no known COVID-19 positive contacts or current COVID-19 related symptoms. Patient vaccinated. Surgeon arranging preop COVID testing. Awaiting results. - S/P D&C, hysteroscopy (05/21/20): LMA#4 at [facility] [place] - Check test AM DOS - Patient concern: Patient does not wish to hear tools perioperatively if possible. Discussed GA vs. SAB. Anesthesia to be discussed further AM DOS. Chart Review Chart Review: Acceptable Risk for Surgery (pending surgeon-ordered PCP clearance) and Patient seen in Pre Admission Testing Teaching & Discussion Pre-Anesthesia Teaching/Discussion Notes: Instructed NPO after midnight before surgery,except medications with 15 cc of water. Medication instructions provided according to the PAT guidelines. History Surgery Operation Date: 12/23/20 09:00 Proposed Procedures p Left Total Hip Arthroplasty Dual Mobility - Trace Hodge MD Height/Weight Height: 5 ft 4 in Weight: 100.3 kg Allergies Allergy/AdvReac Type Severity Reaction Status Date / Time adhesive tape Allergy Unknown Rash Verified 09/28/20 10:03 aspirin Allergy Unknown Hives, Verified 09/28/20 10:56 asthma symptoms celecoxib [From Celebrex] Allergy Unknown Hives Verified 09/28/20 10:03 meloxicam [From Mobic] Allergy Unknown Difficulty Verified 09/28/20 10:03 Breathing Penicillins Allergy Unknown Unknown Verified 09/28/20 10:03 reaction Medications Home Medications Medication Instructions Recorded Confirmed Last Taken cetirizine 10 mg tablet (Zyrtec) 10 mg PO HS 12/01/17 09/28/20 05/20/20 budesonide-formoterol HFA 160 2 puff INHALATION BID #10.2 g 12/23/19 09/28/20 05/20/20 mcg-4.5 mcg/actuation aerosol inhaler montelukast 10 mg tablet 10 mg PO HS #90 tab 01/01/20 09/28/20 05/20/20 omeprazole 40 mg capsule,delayed 40 mg PO HS #90 cap 01/01/20 09/28/20 05/20/20 release clobetasol 0.05 % topical ointment 1 applic TOPICAL UD PRN 02/12/20 09/28/20 Unknown valacyclovir 500 mg tablet 500 mg PO QAM 02/12/20 09/28/20 05/20/20 (Valtrex) methocarbamol 750 mg tablet 750 mg PO UD PRN 03/31/20 09/28/20 Unknown bupropion HCl 150 mg 24 hr tablet, 300 mg PO QAM #60 tab 08/03/20 09/28/20 Unknown extended release (Wellbutrin XL) levothyroxine 75 mcg tablet 75 mcg PO QAM #30 tab 08/04/20 09/28/20 Unknown ProAir HFA 90 mcg/actuation 2 puff INHALATION Q4H PRN #8.5 g NS 08/18/20 09/28/20 Unknown aerosol inhaler (albuterol sulfate) Past Medical History Medical History Anxiety Arthritis hips Asthma stable Degenerative disc disease Depression Dyslipidemia GERD (gastroesophageal reflux disease) controlled History of COVID-19 Dx 02/2020 ([place]) > testing was for preop, symptoms of: fatigue, cough, low grade fever, loss of taste/smell/memory > resolved except residual loss of smell and memory impairment Hypertension Hx, controlled off meds per pt Hypothyroidism Migraine Hx Obesity Osteoarthritis Sleep apnea No device Exercise / Class Metabolic Activity II 4-5 Yardwork/Stairs/Walk up hill (one FS (no CP, no SOB)) Past Family History Family History Mother Family history of diabetes mellitus Family history of reaction to anesthesia very nauseated/vomiting Grandfather Family history of diabetes mellitus maternal Family/Other Family history of diabetes mellitus maternal aunts/uncles Grandmother Stroke syndrome Unknown No problems noted. Uncle Family history of cancer of mouth Past Surgical History Surgical History Hip problem severe hip pain post-op previous D&C d/t positioning perioperatively per pt History of adenoidectomy History of arthroscopy left hip History of carpal tunnel release R/L History of cholecystectomy History of colonoscopy History of dilatation and curettage D&C, hysteroscopy (05/01/17): LMA#4 at [facility] [place] (wt at time 107kg) D&C, hysteroscopy (05/21/20): LMA#4 at [facility] [place] (wt at time 97.1kg) History of esophagogastroduodenoscopy (EGD) History of partial thyroidectomy large benign nodules on left side removed History of surgery emergency repair of burst artery after tonsillectomy (2012) History of tooth extraction WTE Hx of tonsillectomy x2 Status post hysteroscopic ablation of endometrium Past Anesthesia History No Hx of Anesthesia Complications and No Family Hx of Anesthesia Complications (except mother (PONV)) History of PONV No Hx of PONV and No Hx of Motion Sickness Social History Smoking Status: Former smoker Do You Dip or Chew Tobacco: No Smoking End Date: Quit 9 years ago Hx Alcohol Use: Yes Alcohol type: hard liquor alcohol intake frequency: holidays/special occasions only Hx Substance Use: No substance use type: does not use Review of Systems Patient denies chest pain, shortness of breath, dyspnea on exertion, fever, chills, cough, wheezing, palpitations. Physical Exam Vital Signs VITALS BP 127/85 P 82 TEMP 98.6 SP02 98%RA RESP 16 PHYSICAL Full cervical extension range of motion. Full TMJ range of motion. TMD 3.5 finger breaths Mallampati Score 2 Dentition: several missing sides/molars Lungs: clear throughout to auscultation Cardiac: regular rate and rhythm, no murmurs noted Spine: normal Carotid arteries: negative bruit Extremities: no edema Lab Results Anesthesia Preop Results Results Anesthesia Widget: WBC 8.54 K/uL (4.8-10.8) 09/29/20 Hgb 12.3 g/dL (12.0-16.0) 09/29/20 Hct 38.6 % (37-47) 09/29/20 Plt 358 K/uL (130-400) 09/29/20 Na 140 mmol/L (136-145) 09/29/20 K 4.5 mmol/L (3.5-5.1) 09/29/20 Cl 107 mmol/L (98-107) 09/29/20 CO2 26 mmol/L (21-32) 09/29/20 BUN 14 mg/dl (7-18) 09/29/20 Creat 0.82 mg/dl (0.6-1.2) 09/29/20 Glucose Level 91 mg/dl (70-99) 09/29/20 PT 10.7 Seconds (9.0-12.0) 09/29/20 PTT 25.4 Seconds (21.0-31.0) 09/29/20 INR 1.1 (0.9-1.1) 09/29/20 Urine Color Yellow 09/29/20 Urine Appearance Clear (Clear) 09/29/20 Urine pH 6.5 (4.5-7.5) 09/29/20 Urine Specific [place] 1.015 (1.000-1.030) 09/29/20 Urine Protein Negative (Negative) 09/29/20 Urine Glucose (UA) Negative (Negative) 09/29/20 Urine Ketones Negative (Negative) 09/29/20 Urine Blood Negative (Negative) 09/29/20 Urine Nitrite Negative (Negative) 09/29/20 Urine Bilirubin Negative (Negative) 09/29/20 Urine Urobilinogen Negative (Negative) 09/29/20 Urine Leukocyte Esterase 1+ (Negative) H 09/29/20 Urine WBC (Auto) 5-10 /hpf (0-5) H 09/29/20 Urine RBC (Auto) 0-4 /hpf (0-4) 09/29/20 Urine Hyaline Casts (Auto) 0 /lpf (0-5) 09/29/20 Urine Epithelial Cells (Auto) >30 /lpf (0-5) H 09/29/20 Urine Bacteria (Auto) Negative (Negative) 09/29/20 Blood Type B Positive 09/29/20 Antibody Screen NEGATIVE 09/29/20 Testing Electrocardiogram Date: 02/14/20 NSR at 68bpm. Low voltage QRS. Chest X-Ray Date: 09/29/20 FINDINGS: PA and lateral chest radiographs are compared to study dated 09/17/2018. The cardiomediastinal silhouette is unremarkable. There is mild bibasilar atelectasis. The lungs and pleural spaces are otherwise clear. There is no pneumothorax. The bony thorax appears intact. Cholecystectomy clips are noted in the right upper quadrant. IMPRESSION: No active disease in the chest.
--- NOTE | 2020-10-05 16:01 | History & Physical Report ---
Date of Service October 05, 2020 Assessment & Plan (1) Degenerative joint disease of left hip: Plan: Postoperative prescriptions for Percocet and Coumadin will be provided at discharge from the hospital. Anticipate discharge to home with either outpatient services or home health services. Prescription was provided for a rolling walker. She has an appointment to see her PCP later this week. Preoperative lab work, EKG, and chest x-ray were completed this morning. She will obtain her COVID nasal test on Monday. The patient is aware of the COVID- 19 risks associated with surgery. She is currently asymptomatic of any COVID-19 symptoms. PDMP was checked, and there are no concerning findings. History of Present Illness Chief Complaint: Left hip pain Primary Care Provider: Kar Ortega MD This 55-year-old female presents for her preoperative history and physical. She is scheduled to undergo a left total hip arthroplasty with possible dual mobility cup on 10/07/2020. The patient has had left hip pain since 2012. She has been seen by numerous providers over the years and has had multiple hip injections without improvement. Her last hip injection was roughly 4 years ago. She has had increasing pain with time. She notes worsening pain with weightbearing. There is some loss of motion. No numbness or tingling. Pain is in the groin and radiates outward in a C-shaped pattern. Pain is affecting her ADLs. She elects to proceed with surgical intervention in hopes of improving her pain and function. Preoperative imaging has been obtained. Allergies Allergy/AdvReac Type Severity Reaction Status Date / Time adhesive tape Allergy Unknown Rash Verified 09/30/20 15:55 aspirin Allergy Unknown Hives, Verified 09/30/20 15:55 asthma symptoms celecoxib [From Celebrex] Allergy Unknown Hives Verified 09/30/20 15:55 meloxicam [From Mobic] Allergy Unknown Difficulty Verified 09/30/20 15:55 Breathing Penicillins Allergy Unknown Unknown Verified 09/30/20 15:55 reaction Home Medications Medication Instructions Recorded Confirmed Type cetirizine 10 mg tablet (Zyrtec) 10 mg PO HS 12/01/17 09/30/20 History budesonide-formoterol HFA 160 2 puff INHALATION BID #10.2 g 12/23/19 09/30/20 Rx mcg-4.5 mcg/actuation aerosol inhaler montelukast 10 mg tablet 10 mg PO HS #90 tab 01/01/20 09/30/20 Rx omeprazole 40 mg capsule,delayed 40 mg PO HS #90 cap 01/01/20 09/30/20 Rx release clobetasol 0.05 % topical ointment 1 applic TOPICAL UD PRN 02/12/20 09/30/20 History valacyclovir 500 mg tablet 500 mg PO QAM 02/12/20 09/30/20 History (Valtrex) methocarbamol 750 mg tablet 750 mg PO UD PRN 03/31/20 09/30/20 History bupropion HCl 150 mg 24 hr tablet, 300 mg PO QAM #60 tab 08/03/20 09/30/20 Rx extended release (Wellbutrin XL) levothyroxine 75 mcg tablet 75 mcg PO QAM #30 tab 08/04/20 09/30/20 Rx ProAir HFA 90 mcg/actuation 2 puff INHALATION Q4H PRN #8.5 g NS 08/18/20 09/30/20 Rx aerosol inhaler (albuterol sulfate) Past Med/Surg History Medical History Anxiety Arthritis hips Asthma stable Degenerative disc disease Depression Dyslipidemia GERD (gastroesophageal reflux disease) controlled History of COVID-19 Dx 02/2020 ([place] facility) > testing was for preop, symptoms of: fatigue, cough, low grade fever, loss of taste/smell/memory > resolved except residual loss of smell and memory impairment Hypertension Hx, controlled off meds per pt Hypothyroidism Migraine Hx Obesity Osteoarthritis Sleep apnea No device Surgical History Hip problem severe hip pain post-op previous D&C d/t positioning perioperatively per pt History of adenoidectomy History of arthroscopy left hip History of carpal tunnel release R/L History of cholecystectomy History of colonoscopy History of dilatation and curettage D&C, hysteroscopy (05/01/17): LMA#4 at [facility] [place]wt at time 107kg) D&C, hysteroscopy (05/21/20): LMA#4 at [facility] [place] (wt at time 97.1kg) History of esophagogastroduodenoscopy (EGD) History of partial thyroidectomy large benign nodules on left side removed History of surgery emergency repair of burst artery after tonsillectomy (2013) History of tooth extraction WTE Hx of tonsillectomy x2 Status post hysteroscopic ablation of endometrium Family History Mother Family history of diabetes mellitus Family history of reaction to anesthesia very nauseated/vomiting Grandfather Family history of diabetes mellitus maternal Family/Other Family history of diabetes mellitus maternal aunts/uncles Grandmother Stroke syndrome Unknown No problems noted. Uncle Family history of cancer of mouth Social History (Updated 10/05/20 @ 15:57 by Alvin Silva PA-C) Smoking Status: Never smoker Second Hand Exposure: Yes; Hx Alcohol Use: Yes Alcohol type: hard liquor Hx Substance Use: No Preferred Language: Turkish Communication Ability: Effective Visual Impairment: Limited Hearing Ability: Normal Funeral Director Required: No Beliefs That Will Affect Care: None marital status: Current Living Situation: Spouse Current Living Situation Comment: lives with and 3 children and 1 aunt current occupational status: employed current occupation: [employer] Feels Safe at Home: Yes caffeine: No Dental Care, Regularly: No Physical Activity Frequency: Does not Exercise Seatbelt Use: always Sunscreen Use: Yes Assistive Devices: Glasses Review of Systems Review of Systems: All systems reviewed & are unremarkable except as noted in HPI & below A total of 10 systems were reviewed. Physical Exam Physical Exam: Vitals: Height 159.5 cm, weight 98.7 kilograms, BMI 38.8, temperature 36.6, BP 128/86, pulse 84, O2 sat 98% on room air. General: Well-developed, well-nourished middle-aged white female in no acute distress. Sitting in a chair. Alert and oriented. Skin: Warm and dry with good turgor. No rashes or lesions. No ecchymosis or erythema. No intraarticular effusions. HEENT: Normocephalic, atraumatic. Eyes: PERRLA, EOMI. Nares patent bilaterally without turbinate enlargement. Oropharynx exam deferred due to COVID precautions. Heart: RRR, no MGR, occasional PVCs. Lungs: Clear to auscultation bilaterally. No crackles, rhonchi or wheezing. Good air movement. Abdomen: Obese. Bowel sounds present x4, soft, nontender. No organomegaly. No masses. Musculoskeletal: Left hip evaluation reveals no obvious asymmetry or deformity. She has notable restriction in motion. Flexion is limited to around 90 degrees secondary to discomfort. External rotation of around 20 degrees. Internal rotation to just beyond neutral before onset of discomfort. No significant discomfort with palpation over the IT band or greater trochanter. Intact motor function of the knee and ankle. Ambulates today with a very mildly antalgic gait. Neurologic: Gross sensation is intact across the lower extremities by soft touch. Peripheral pulses are 2+. Results & Data Results & Data ([facility]) Diagnostic Findings Radiographic imaging previously obtained shows advanced DJD of the left hip. She has significant acetabular overgrowth. Osteophyte is present on the femoral head. Joint space narrowing is also noted. Code Status & VTE Plan VTE Prophylaxis Plan VTE Prophylaxis will be ordered: Yes
--- NOTE | 2020-10-06 22:07 | History & Physical Bridge Note ---
Date of Service October 06, 2020 History & Physical Bridge Note I have examined the patient, reviewed the History & Physical and in the interval since the performance of the History & Physical I have noted the following changes of clinical significance: consent obtained/site verified/covid screen negative.no changes noted
[2020-10-07] MEDS ORDERED: ceFAZolin 2000MG 2,000 MG/15 ML SYR IV SCH (06:00)
[2020-10-07] MEDS ORDERED: ROPIVACAINE 0.5% HCL/PF 150 MG, BUPIVACAINE 0.75% MPF 20 ML, EPINEPHrine 0.15 MG, dexAM... INFIL SCH (06:00)
[2020-10-07] MEDS ORDERED: LR 60ML/HR IV SCH (06:00)
[2020-10-07] MEDS ORDERED: TRANEXAMIC ACID 1,000 MG **IV Pre-op IV SCH (06:00)
[2020-10-07] MEDS ORDERED: LR 500ML BOLUS, THEN 15ML/HR IV SCH (06:00)
[2020-10-07] MEDS ORDERED: BUPIVACAINE 0.5 % 5 MG/1 ML PF 10ML VIAL ONE (06:27)
[2020-10-07] MEDS ORDERED: MIDAZOLAM HCL 1 MG/ML 2ML VIAL ONE ×2 (06:31)
[2020-10-07] MEDS ORDERED: ORTHO JOINT ANESTHETIC ONE (06:35)
[2020-10-07] MEDS ORDERED: HYDROmorphone INJ 2 MG/ML SYR/VIAL IV PRN (06:41)
[2020-10-07] MEDS ORDERED: ATROPINE SULFATE 0.1 MG/ML 10ML SYR IV PRN (06:41)
[2020-10-07] MEDS ORDERED: ONDANSETRON INJ 2 MG/ML 2 ML VIAL IV PRN ×2 (06:41→10:15)
[2020-10-07] MEDS ORDERED: ePHEDrine sulfate 50 MG/ML AMP IV PRN (06:41)
[2020-10-07] MEDS ORDERED: KETAMINE 50 MG/5 ML SYRINGE ONE (06:58)
[2020-10-07] MEDS ORDERED: ONDANSETRON INJ 2 MG/ML 2 ML VIAL ONE (07:19)
[2020-10-07] MEDS ORDERED: PROPOFOL IV EMULSION 10 MG/ML 20 ML VIAL IV ONE ×4 (07:19→08:07)
[2020-10-07] MEDS ORDERED: LIDOCAINE 2% 2 ML VIAL/AMP(20MG/ML) INFIL ONE (07:19)
[2020-10-07] MEDS ORDERED: PHENYLEPHRINE 100MCG/ML 5ML SYR ONE (07:40)
--- NOTE | 2020-10-07 08:40 | Post Operative Brief Note ---
Immediate Post Op Note v1 Date of Surgery October 07, 2020 Pre & Post Diagnosis Operation Date: 10/07/20 07:00 Pre-Op Diagnosis: Left Hip Degenerative Joint Disease Post-Op Diagnosis: Left Hip Degenerative Joint Disease I identified the patient and participated in the time-out.: Yes Procedure Operation Date: 10/07/20 07:00 Actual Procedures p Left Total Hip Arthroplasty--Uncemented(Left) - Trace Hodge MD Surgeon Trace Hodge MD [facility] 50 Findings Consistent with Post-Op Diagnosis
--- NOTE | 2020-10-07 08:52 | Operative Report ---
Post Operative Report Pre & Post Diagnosis Operation Date: 10/07/20 07:00 Pre-Op Diagnosis: Left Hip Degenerative Joint Disease Post-Op Diagnosis: Left Hip Degenerative Joint Disease I identified the patient and participated in the time-out.: Yes Procedure Operation Date: 10/07/20 07:00 Actual Procedures p Left Total Hip Arthroplasty--Uncemented(Left) - Trace Hodge MD Surgeon KIMBERLY Hodge MD Patient Navigator Ricardo MELO Estimated Blood Loss 50 Findings Consistent with Post-Op Diagnosis see operative report Specimens see operative report Drains none Complications none Disposition Accompanied Patient To Recovery: Yes Indications This 55-year-old female presented to the office with complaints of persisting left hip pain. She had tried conservative care measures including previous steroid injection, without lasting improvement. She elected to proceed with surgical intervention after being educated about potential risks and outcomes. Preoperative imaging was obtained. Description of Procedure Patient was administered a spinal anesthetic and then taken to the operating room where she was given sedation. She was prepped and draped in the usual sterile fashion. Please see Dr. Hodge's operative report for specifics of the procedure. I was present for the entire case from initial patient positioning through final wound closure. Assistance was provided in tissue retraction, hemostasis, trial implant placement, final implant placement, and final wound closure. Patient was taken to the recovery room in satisfactory condition. I attest to the content of the Intraoperative Record and any orders documented therein. Any exceptions are noted below.
[2020-10-07] MEDS: fentaNYL citrate 100 MCG/2 ML VIAL IV PRN ×2 (08:58→09:03)
--- NOTE | 2020-10-07 09:08 | Operative Report (OR) ---
DATE OF PROCEDURE: 10/07/2020. SURGEON: Trace Hodge MD. TOOL REPAIRER: Alvin Silva PA-C. No resident or fellow available. PREOPERATIVE DIAGNOSIS: Osteoarthritis, left hip. POSTOPERATIVE DIAGNOSIS: Osteoarthritis, left hip. OPERATION PERFORMED: Noncemented left total hip replacement. SUMMARY OF IMPLANTS: Size 50 acetabular shell sector cup 6.5 x 20 mm screw, 32 x 50 neutral liner, 0 high Tri-Lock stem, 32+5 ceramic head. ESTIMATED BLOOD LOSS: 50 mL. PATHOLOGY: Pending on bone. DVT prophylaxis per protocol. PERIOPERATIVE SITUATION: Medically cleared female with intractable hip pain who is at this point in time wants to proceed with surgical treatment. She understands the risks and consequences and the fa ct at her age, she probably will require revision. DESCRIPTION OF PROCEDURE: The patient was appropriately identified, site verified, consent verified. Antibiotics were confirmed as being given. Left lower extremity was prepped and draped in usual ro utine fashion. In the right lateral decubitus position the left leg was short proximally about 0.5 a centimeter. Posterior approach was made. Appropriate length of the incision was made based on the size of the patient. Full-thickness flaps raised. The IT band and gluteal suad fascia was then s plit and a deep Charnley retractor was placed. Care was taken to protect the sciatic nerve, all of t he deep adipose tissue was swept off the posterior capsule and short external rotator and the short e xternal rotators were released and then capsule identified and T'd and then the hip dislocated. The femoral neck was then resected. The acetabulum was quite degenerated as well as the femoral head. T here was a significant amount of synovitis. Serial reaming was carried up to a 50 and a 50 cup impac rosana into appropriate anteversion and inclination. A 6.5 x 20 screw was placed with excellent purchas e. Trial liner was then seated. Hip was then flexed and internally rotated. Proximal femur was diogo te narrow and was prepared with a rongeur, curette, canal finder, lateralizing rasp and rasped up to a size 0, which was filling the proximal femur quite fully. It was elected not to try to push any fu rther and realizing the potential of splitting the femur. A trial reduction was then carried out. T he hip was extremely stable. The trial implant was then removed, all trial elements were removed, th e wound irrigated with Betadine Pulsavac and hole eliminator seated, permanent liner seated, the perm anent head and stem seated. The hip reduced. It was stable in all planes. Leg lengths were equal. Short external rotators were then closed with the capsule with #2 Vicryl stitch and IT band and glut eal suad fascia with the same stitch. Deep fat with the same stitch. Orthomix was then injected i nto the superficial layers and the superficial layer closed with 2-0 Vicryl and stainless steel clips . Appropriate dressing applied. The patient was transferred to recovery room in satisfactory condit ion, having tolerated the procedure well. Job ID: [id number]
--- NOTE | 2020-10-07 09:19 | Discharge Summary (DS) ---
DATE OF DISCHARGE: Potential 10/08/2020 CHIEF COMPLAINT: Left hip pain. HISTORY OF PRESENT ILLNESS: The patient underwent elective left total hip replacement without cement . At this point in time, today the hospital course has been uneventful. HOME MEDICATIONS: Include cetirizine, Zyrtec 10 mg 2 puff inhaler with budesonide-formoterol mononuc leosis 10 mg, omeprazole, clobetasol topical ointment, valacyclovir, methocarbamol, bupropion-hydroch loride, levothyroxine, ProAir HFA inhaler. PAST MEDICAL HISTORY: Remarkable for anxiety, hip arthritis, asthma, degenerative disk disease, depr ession, dyslipidemia, gastroesophageal reflux, history of COVID-19 in February, hypertension, hypothyr oidism, migraines, obesity, osteoarthritis, sleep apnea. SURGICAL HISTORY: Remarkable for adenoidectomy, hip arthroscopy, carpal tunnel release, cholecystect lisset, colonoscopy, D and C, EGD, thyroidectomy, partial wisdom tooth extraction, tonsillar bleed after tonsillectomy, hysteroscopic ablation of endometrium. FAMILY HISTORY: Remarkable for diabetes, nausea, vomiting with anesthesia, history of stroke, histor y of oral cancer. SOCIAL HISTORY: Reveals she does not smoke, exposed to secondhand tobacco smoke. P.r.n. use of alco hol. Speaks Telugu well, is and lives with spouse. Feels safe at home, has 3 children who live with her as well as one aunt. She is employed. She works at [employer]. REVIEW OF SYSTEMS: Reveals no chest pain, shortness of breath, fever, chills, nausea, vomiting or he adache. ASSESSMENT: Status post left total hip replacement. Continue postoperative care pathway. At this p oint in time, potential discharge tomorrow if she does well overnight. Job ID: [id number]
--- NOTE | 2020-10-07 09:23 | XRay Report ---
SINGLE VIEW PELVIS CLINICAL HISTORY: Postoperative examination. FINDINGS: An AP portable view of the hips and lower pelvis is obtained. A bipolar left hip arthroplas ty is in near-anatomic alignment. A single cortical lag screw transfixes the acetabular cup. No acute fracture is identified. There are expected postoperative changes overlying the left hip including sk in clips, subcutaneous gas and soft tissue swelling. Mild to moderate degenerative joint space narrow ing is seen in the right hip. IMPRESSION: Expected postoperative findings status post left hip arthroplasty. No acute fracture is s een. ACT 112: Negative or not required by law. Electronically signed by: Donnell Adler M.D. 10/07/2020 9:22 AM
--- NOTE | 2020-10-07 09:27 | Progress Notes ---
DATE OF NOTE: 10/07/2020 SUBJECTIVE: Postop check status post left total hip replacement. The patient is resting comfortably in bed. She is a little bit anxious, per her baseline. She denies any chest pain, shortness of yusuf ath, fever, chills, nausea, vomiting or headache. OBJECTIVE: VITAL SIGNS: Stable. She is afebrile. Spinal is starting to wear off. She can internally roll her hips and her legs. Still has no active extension of either side. Wound dressing clean, dry and intact. Postop x-rays look excellent. ASSESSMENT: Status post left total hip replacement, doing well. PLAN: Continue postoperative care pathway. DVT prophylaxis per protocol. Job ID: [id number]
--- NOTE | 2020-10-07 09:39 | Anesthesiology Progress Note ---
Date of Service October 07, 2020 Anesthesia Post Procedure Vital Signs Vital Signs: Temp Pulse Pulse Resp BP Pulse Ox 10/07/20 09:30 36.9 C 67 16 119/82 96 10/07/20 09:20 61 16 121/67 97 10/07/20 09:10 69 14 135/84 98 10/07/20 09:00 73 14 113/87 100 10/07/20 08:50 36.6 C 79 20 142/98 H 98 10/07/20 05:47 36.8 C 87 18 152/91 H 97 Pain Intensity Left Hip: Pain Intensity: 3 Transfer of Care Handoff Completed per policy Notes Mental Status: alert / awake / arousable and participated in evaluation Patient Amnestic to Procedure: Yes Nausea / Vomiting: adequately controlled Pain: adequately controlled Airway Patency, RR, SpO2: stable & adequate BP & HR: stable & adequate Hydration State: stable & adequate Anesthetic Complications: no major complications apparent and Pt Satisfied with anesthetic care
[2020-10-07] MEDS ORDERED: PROMETHAZINE HCL 12.5 MG in SODIUM CHLORIDE 0.9% 50 ML IV ONE (10:00)
[2020-10-07] MEDS ORDERED: METHOCARBAMOL 750 MG TABLET PO PRN (10:15)
[2020-10-07] MEDS ORDERED: MAGNESIUM HYDROXIDE SUSP 30 ML UDC PO PRN (10:15)
[2020-10-07] MEDS ORDERED: SODIUM CHLORIDE 0.9% 1000ML 1,000 ML IV SCH (10:15)
[2020-10-07] MEDS ORDERED: METOCLOPRAMIDE HCL INJ 5 MG/ML 2 ML VIAL IV PRN (10:15)
[2020-10-07] MEDS ORDERED: ALUMINUM/MAGNESIUM SUSP 30 ML UDC PO PRN (10:15)
[2020-10-07] MEDS ORDERED: bisacodyL 10 MG SUPP PR PRN (10:15)
[2020-10-07] MEDS ORDERED: NALOXONE HCL 0.4 MG/1 ML VIAL/CARP IV PRN (10:15)
[2020-10-07] MEDS ORDERED: diphenhydrAMINE 50 MG/ML VIAL IV PRN (10:15)
[2020-10-07] MEDS ORDERED: CLOBETASOL PROPIONATE 0.05% OINT 15 GM TUBE EXT PRN (10:32)
[2020-10-07] MEDS: buPROPion XL 300 MG TABCR PO SCH (11:02)
[2020-10-07] MEDS: valACYclovir HCL 500 MG TABLET PO SCH (11:03)
[2020-10-07] MEDS: MULTIVITAMIN TAB PO SCH (11:03)
[2020-10-07] MEDS: LEVOTHYROXINE SODIUM 75 MCG TABLET PO SCH (11:03)
[2020-10-07] MEDS: DOCUSATE SODIUM 100 MG CAP PO SCH ×3 (11:03→19:43)
[2020-10-07] MEDS: HYDROmorphone INJ 0.5 MG/0.5 ML SYR IV PRN ×2 (11:16→13:17)
[2020-10-07] MEDS ORDERED: MoRPHine SULFATE 4 MG/ML 1 ML CARP\\VIAL IV PRN (13:43)
[2020-10-07] MEDS: ORTHO WARFARIN NOMOGRAM SCH (14:25)
[2020-10-07] MEDS: ACETAMINOPHEN 500 MG TAB PO SCH ×2 (14:53→22:46)
[2020-10-07] MEDS ORDERED: TRANEXAMIC ACID / 0.7% NACL 1,000 MG/100 ML BAG IV SCH (15:00)
--- NOTE | 2020-10-07 15:08 | Progress Notes ---
DATE OF NOTE: 10/07/2020. SUBJECTIVE: Postop check, having some anxiety and some pain control issues. OBJECTIVE: VITAL SIGNS: Good and she is not overly tachycardic at this point in time. NEUROVASCULAR CHECK: Femoral sciatic nerve is normal. X-RAY: Wound dressing clean, dry and intact. Hip rotation supple, pain free. ASSESSMENT AND PLAN: Adjust pain meds, we will add Dilaudid 2 mg p.o. q. 3 hours p.r.n. rather than 0.5 mg p iv q. 4 hours p.r.n. Discontinue morphine and unable to use Toradol or NSAIDs based on history of hives and difficulty breathing with NSAIDs. Ativan 0.5 mg q 4 hrs prn for anxiety.Will try to get up and move around as she is awake and alert. We will hep lock/saline lock IV when she is ready to have more food. Job ID: [id number] MTDD
[2020-10-07] MEDS: LORazepam 0.5 MG TAB PO PRN ×3 (15:33→23:47)
[2020-10-07] MEDS ORDERED: WARFARIN SOD 5 MG TAB PO SCH (16:00)
[2020-10-07] MEDS: ceFAZolin 2000MG 2,000 MG/15 ML SYR IV SCH ×2 (17:08→22:46)
[2020-10-07] MEDS: HYDROmorphone HCL 2 MG TAB PO PRN (17:10)
[2020-10-07] MEDS: ASCORBIC ACID 500 MG TAB PO SCH (17:32)
[2020-10-07] MEDS: FERROUS GLUCONATE 324 MG TAB PO SCH (17:32)
[2020-10-07] MEDS: oxyCODONE HCL IR 5 MG TAB (IMMEDIATE RELEASE) PO PRN ×2 (19:42→23:47)
[2020-10-07] MEDS ORDERED: CETIRIZINE HCL 10 MG TABLET PO SCH (21:00)
[2020-10-07] MEDS ORDERED: MONTELUKAST SODIUM 10 MG TABLET PO SCH (21:00)
[2020-10-07] MEDS ORDERED: SENNA 8.6 MG TAB PO SCH (21:00)
[2020-10-07] MEDS ORDERED: PANTOprazole 40 MG TAB PO SCH (21:00)
[2020-10-08] MEDS: ALBUTEROL HFA 8 GM INHALER INH PRN ×2 (03:42→11:32)
[2020-10-08] MEDS: oxyCODONE HCL IR 5 MG TAB (IMMEDIATE RELEASE) PO PRN ×3 (04:02→12:17)
[2020-10-08] MEDS: LORazepam 0.5 MG TAB PO PRN ×3 (04:03→12:17)
[2020-10-08] MEDS: LEVOTHYROXINE SODIUM 75 MCG TABLET PO SCH (06:04)
[2020-10-08] MEDS: ACETAMINOPHEN 500 MG TAB PO SCH ×2 (06:04→13:50)
[2020-10-08 06:31] LABS: Basophils # (auto) 0.01 K/uL (0-0.2); Basophils % (auto) 0.1 %; Hemoglobin 10.5 g/dL (12.0-16.0); Immature Granulocytes # (auto) 0.01 K/uL (0.00-0.02); Immature Granulocytes % (auto) 0.1 %; Lymphocytes # (auto) 1.26 K/uL (1.2-3.4); Lymphocytes % (auto) 10.6 %; Mean Corpuscular Hemoglobin 25.7 pg (25-34); Mean Corpuscular Hgb Conc 30.9 g/dL (32-36); Mean Corpuscular Volume 83.3 fL (80-100); Mean Platelet Volume 10.5 fL (7.4-10.4); Monocytes # (auto) 0.94 K/uL (0.11-0.59); Monocytes % (auto) 7.9 %; Neutrophils # (auto) 9.71 K/uL (1.4-6.5); Neutrophils % (auto) 81.3 %; Platelet Count 321 K/uL (130-400); RDW Coefficient of Variation 16.1 % (11.5-14.5); RDW Standard Deviation 49.3 fL (36.4-46.3); Red Blood Count 4.08 M/uL (4.2-5.4); White Blood Count 11.93 K/uL (4.8-10.8)
--- NOTE | 2020-10-08 06:56 | Progress Notes ---
DATE: 10/07/2020. SUBJECTIVE: Postoperative day #1 status post left total hip replacement. The patient is sitting up in the chair. States the pain is managed and feels much more confident and secure at this point in t franci. She denies any chest pain, shortness of breath, fever, chills, nausea, vomiting, or headache. OBJECTIVE: VITAL SIGNS: Stable. She is afebrile. O2 sats are good on room air. Calves nontender. Wound dressing clean, dry and intact. Neurovascular check, femoral sciatic nerve normal. Hip located. ASSESSMENT AND PLAN: Doing well status post left total hip replacement. A.m. labs pending. Expect to be able to be discharged today. Coumadin dose per nomogram. PT, OT JIHAN and then home. She will have a Prevena placed later by the PA. She should have a followup in a week to get that off in the office and have another dressing change. She can start her therapy any time after day #7. Coumadin dose per nomogram. Keep INR 1.8-2.2. Job ID: [id number]
[2020-10-08 06:59] LABS: BUN Creatinine Ratio 10.6 (10-20); Calcium 8.3 mg/dl (8.5-10.1); Creatinine Clr Calc Pharmacy 81.9 ml/min; Est GFR (African American) 83.5 ml/min; Potassium 3.7 mmol/L (3.5-5.1)
[2020-10-08 07:16] LABS: INR 1.2 (0.9-1.1); Prothrombin Time 11.6 Seconds (9.0-12.0)
[2020-10-08 07:19] VITALS: BP 116/69; PULSE 89; TEMP 98.6
[2020-10-08] MEDS: buPROPion XL 300 MG TABCR PO SCH (07:42)
[2020-10-08] MEDS: DOCUSATE SODIUM 100 MG CAP PO SCH (07:42)
[2020-10-08] MEDS: MULTIVITAMIN TAB PO SCH (07:42)
[2020-10-08] MEDS: FERROUS GLUCONATE 324 MG TAB PO SCH (07:42)
[2020-10-08] MEDS: valACYclovir HCL 500 MG TABLET PO SCH (07:42)
[2020-10-08] MEDS: ASCORBIC ACID 500 MG TAB PO SCH (07:42)
[2020-10-08] MEDS ORDERED: dexAMETHasone 10 MG in SYRINGE 0 ML IV SCH (08:00)
[2020-10-08] MEDS: FLUTICASONE/VILANTEROL 200/25MCG 14 PUFFS/INHALER INH SCH ×2 (11:02→11:04)
[2020-10-08 11:34] VITALS: O2SAT 97
[2020-10-08] MEDS: HYDROmorphone HCL 2 MG TAB PO PRN (13:18)
[2020-10-08] MEDS: ORTHO WARFARIN NOMOGRAM SCH (13:50)
[2020-10-08] MEDS ORDERED: WARFARIN SOD 5 MG TAB PO ONE (16:00)
== END 2020-10-08 14:45 | disposition home health service (06) ==
LOC: ASU 05:08 → 3E 05:08
DX: Z79.899 Other long term (current) drug therapy; Z79.51 Long term (current) use of inhaled steroids; J45.909 Unspecified asthma, uncomplicated; G47.30 Sleep apnea, unspecified; E66.9 Obesity, unspecified; K21.9 Gastro-esophageal reflux disease without esophagitis; M16.12 Unilateral primary osteoarthritis, left hip

== ENCOUNTER 2024-01-17 05:06 | Observation (INO) ==
--- NOTE | 2023-12-06 10:10 | PAT Medication Instructions ---
Medication Instructions Date of Service December 06, 2023 Home Medications Medication Instructions Recorded omeprazole 40 mg capsule,delayed 40 mg PO HS #90 caps 02/17/23 release syringe with needle, safety 3 mL #100 ea 03/14/23 25 gauge x 5/8" metformin 500 mg tablet 1,000 mg (2 x 500 mg) PO HS #90 05/01/23 tabs cyanocobalamin (vitamin B-12) 1,000 mcg subcut MONTHLY PRN B12 08/24/23 1,000 mcg/mL injection solution 90 days #3 mL indomethacin 50 mg capsule 50 mg PO HS #30 caps 08/24/23 montelukast 10 mg tablet 10 mg PO HS #90 tabs 09/01/23 Zepbound 5 mg/0.5 mL subcutaneous 5 mg (0.5 mL) subcut Q7D #2 mL 09/28/23 pen injector (tirzepatide (weight loss)) Medication List: cetirizine 10 mg tablet (Zyrtec) 10 mg PO HS nystatin-triamcinolone 100,000 unit/g-0.1 % topical cream 1 applic topical BID PRN Rash triamcinolone acetonide 0.5 % topical ointment 1 applic topical DAILY PRN Rash omeprazole 40 mg capsule,delayed release 40 mg PO HS metformin 500 mg tablet 1,000 mg (2 x 500 mg) PO HS hydrochlorothiazide 50 mg tablet 25 mg PO QAM cyanocobalamin (vitamin B-12) 1,000 mcg/mL injection solution 1,000 mcg subcut MONTHLY PRN indomethacin 50 mg capsule 50 mg PO HS montelukast 10 mg tablet 10 mg PO HS Zepbound 5 mg/0.5 mL subcutaneous pen injector (tirzepatide (weight loss)) 5 mg (0.5 mL) subcut Q7D albuterol sulfate 90 mcg/actuation aerosol inhaler 2 puff inhalation Q4H PRN SOB bupropion HCl 300 mg 24 hr tablet, extended release (Wellbutrin XL) 300 mg PO QAM fluticasone fur. 100 mcg-umeclid 62.5 mcg-vilant 25 mcg inhalat.powder (Trelegy Ellipta) 1 inh inhalation QPM valacyclovir 500 mg tablet (Valtrex) 500 mg PO HS MEDICATION INSTRUCTIONS: Continue as directed cyanocobalamin (vitamin B-12) 1,000 mcg/mL injection solution 1,000 mcg subcut MONTHLY PRN fluticasone fur. 100 mcg-umeclid 62.5 mcg-vilant 25 mcg inhalat.powder (Trelegy Ellipta) 1 inh inhalation QPM albuterol sulfate 90 mcg/actuation aerosol inhaler 2 puff inhalation Q4H PRN SOB (use if needed; BRING TO HOSPITAL) nystatin-triamcinolone 100,000 unit/g-0.1 % topical cream 1 applic topical BID PRN Rash (do not apply after bathing prior to surgery) triamcinolone acetonide 0.5 % topical ointment 1 applic topical DAILY PRN Rash ( do not apply after bathing prior to surgery) ASK your surgeon for instructions indomethacin 50 mg capsule 50 mg PO HS DO NOT take the morning of surgery hydrochlorothiazide 50 mg tablet 25 mg PO QAM Take morning of surgery With a small sip of water, OTHERWISE NOTHING TO EAT OR DRINK AFTER MIDNIGHT: bupropion HCl 300 mg 24 hr tablet, extended release (Wellbutrin XL) 300 mg PO QAM Take evening before surgery valacyclovir 500 mg tablet (Valtrex) 500 mg PO HS montelukast 10 mg tablet 10 mg PO HS omeprazole 40 mg capsule,delayed release 40 mg PO HS metformin 500 mg tablet 1,000 mg (2 x 500 mg) PO HS cetirizine 10 mg tablet (Zyrtec) 10 mg PO HS Other Notes DISCUSSED DURING NURSING PHONE CALL, LAST DOSE TO BE 01/06/24 OF: Zepbound 5 mg/0.5 mL subcutaneous pen injector (tirzepatide (weight loss)) 5 mg (0.5 mL) subcut Q7D If you have any questions please call us at [phone] or [phone] or [phone] or [phone]
--- NOTE | 2023-12-14 15:44 | Anesthesiology Consultation ---
Date of Service December 14, 2023 Assessment & Plan (1) Encounter for pre-operative examination: Plan - check BSG am DOS. - awaiting PCP pre-operative evaluation 12/28/23. PAT testing to be faxed to PCP. - anesthesia considerations: patient expressed concern with neuraxial anesthesia as her mother had awareness during knee surgery, states she does not believe she had a spinal block for 2020 left hip replacement. I listened to her concerns and we discussed general vs neuraxial anesthesia and previous spinal block with 2020 hip replacement. She states she did not have awareness with hip replacement surgery. We discussed aspect of asthma and intubation as well. I advised she does not have to let me know today which anesthesia route she would prefer. She stated that after reviewing records and having had spinal in 2020, she is comfortable with spinal block. She will call PAT if has any further questions or concerns regarding anesthesia and is aware her final determination can be made DOS. She denied any additional questions or concerns, expressed comfort with plan. - patient requests her remain with her overnight after surgery due to unfortunately described experience with previous hospitalization 2020. To my knowledge, this is not confirmed until day of surgery which she expressed understanding. I discussed this with a help desk supervisor and provided patient with patient procurement representative information to further assist patient; she expressed appreciation for discussion and assistance. - Zepbound instructions: Patient informed at PAT visit to stop 7 days prior to surgery- voiced understanding. - Outpatient joint assessment: Patient is currently scheduled for inpatient pathway. Patient prefers to remain overnight at this time. Chart Review Chart Review: Pending: Refer to Additional Notes / Consult section and Patient seen in Pre Admission Testing Teaching & Discussion Pre-Anesthesia Teaching/Discussion Notes: Instructed NPO after midnight before surgery, except medications with 15 cc of water. Medication instructions provided according to the PAT guidelines. History Surgery Operation Date: 01/17/24 07:00 Proposed Procedures p Right Total Knee Arthroplasty - Trace Hodge MD Height/Weight Height: 5 ft 3 in Weight: 98.7 kg Allergies Allergy/AdvReac Type Severity Reaction Status Date / Time meloxicam [From Mobic] Allergy Severe Difficulty Verified 12/06/23 08:28 Breathing aspirin Allergy Intermediate Hives, Verified 12/06/23 08:28 asthma symptoms celecoxib [From Celebrex] Allergy Intermediate Hives Verified 12/06/23 08:28 adhesive tape Allergy Mild Rash Verified 12/06/23 08:28 Penicillins Allergy Unknown Unknown Verified 12/06/23 08:28 reaction Medications Home Medications Medication Instructions Recorded Confirmed Last Taken cetirizine 10 mg tablet (Zyrtec) 10 mg PO HS 12/01/17 12/06/23 01/19/23 nystatin-triamcinolone 100,000 1 applic topical BID PRN Rash 01/16/23 12/06/23 Unknown unit/g-0.1 % topical cream triamcinolone acetonide 0.5 % 1 applic topical DAILY PRN Rash 01/16/23 12/06/23 Unknown topical ointment omeprazole 40 mg capsule,delayed 40 mg PO HS #90 caps 02/17/23 12/06/23 Unknown release syringe with needle, safety 3 mL #100 ea 03/14/23 09/19/23 Unknown 25 gauge x 5/8" metformin 500 mg tablet 1,000 mg (2 x 500 mg) PO HS #90 05/01/23 12/06/23 Unkn own tabs hydrochlorothiazide 50 mg tablet 25 mg PO QAM 08/18/23 12/06/23 Unknown cyanocobalamin (vitamin B-12) 1,000 mcg subcut MONTHLY PRN B12 08/24/23 09/19/23 Unknown 1,000 mcg/mL injection solution 90 days #3 mL indomethacin 50 mg capsule 50 mg PO HS #30 caps 08/24/23 12/06/23 Unknown montelukast 10 mg tablet 10 mg PO HS #90 tabs 09/01/23 12/06/23 Unknown Zepbound 5 mg/0.5 mL subcutaneous 5 mg (0.5 mL) subcut Q7D #2 mL 09/28/23 12/06/23 Unknown pen injector (tirzepatide (weight loss)) albuterol sulfate 90 mcg/actuation 2 puff inhalation Q4H PRN SOB 12/06/23 1 Unknown aerosol inhaler bupropion HCl 300 mg 24 hr tablet, 300 mg PO QAM 12/06/23 12/06/23 Unknown extended release (Wellbutrin XL) fluticasone fur. 100 mcg-umeclid 1 inh inhalation QPM 12/06/23 12/06/23 Unknown 62.5 mcg-vilant 25 mcg inhalat.powder (Trelegy Ellipta) valacyclovir 500 mg tablet 500 mg PO HS 12/06/23 12/06/23 Unknown (Valtrex) methylprednisolone 4 mg tablets in 4 mg PO .COMPLEX #21 ea 12/07/23 Unknown a dose pack Additional Notes: Patient is currently on Medrol dose pack by neurology due to holding indomethacin for upcoming cystocele surgery, states this will be completed 12/17/23. Past Medical History Medical History Anxiety Asthma maintenance and rescue inhaler daily ongoing for years-denies increased use Cass-Walker grade 3 cystocele sx to correct this on 12/18/23 at [facility] [place] Chronic neck pain Chronic paroxysmal hemicrania f/u dr. roblero, neuro Degenerative disc disease Depression GERD (gastroesophageal reflux disease) controlled, stable per pt History of blood transfusion History of COVID-19 (~2021) multiple-residual loss of smell and some memory changes improving with CPAP per patient Hypertension controlled, stable per pt Hypothyroidism not on medication-stable per pt-monitored by PCP Metabolic syndrome reason for zepbound and metformin Nausea and vomiting after administration of anesthetic agent occasional, denies needing scop patch ANDREA (obstructive sleep apnea) CPAP-compliant Osteoarthritis Patient denies h/o stroke, seizures, heart attack, heart failure, DM, or blood clots/DVTs. Exercise / Class Metabolic Activity II 4-5 Yardwork/Stairs/Walk up hill (denies chest discomfort or shortness of breath with one flight of stairs) Past Family History Family History Mother Family history of diabetes mellitus Family history of reaction to anesthesia very nauseated/vomiting Grandfather Family history of diabetes mellitus maternal Family/Other Family history of diabetes mellitus maternal aunts/uncles Grandmother Stroke syndrome Unknown No problems noted. Uncle Family history of cancer of mouth Denies family history of Ovarian cancer Breast cancer Colorectal cancer Past Surgical History Surgical History Hip problem severe hip pain post-op previous D&C d/t positioning perioperatively per pt History of adenoidectomy History of arthroscopy left hip History of carpal tunnel release R/L History of cholecystectomy History of colonoscopy History of dilatation and curettage D&C, hysteroscopy (05/01/17): LMA#4 at [facility] (wt at time 107kg) D&C, hysteroscopy (05/21/20): LMA#4 at [facility] (wt at time 97.1kg) History of esophagogastroduodenoscopy (EGD) History of partial thyroidectomy large benign nodules on left side removed History of surgery emergency repair of burst artery after tonsillectomy (2012) History of tooth extraction WTE History of total left hip replacement 10/07/20 @ [facility] Hx of tonsillectomy x2 Status post hysteroscopic ablation of endometrium Past Anesthesia History No Family Hx of Anesthesia Complications and Other (mother with awareness with knee replacement) History of PONV No Hx of Motion Sickness and History of PONV (denies needing scop patch) Social History Smoking Status: Former smoker tobacco type: cigarettes Do You Dip or Chew Tobacco: No Smoking End Date: 05/2010 Hx Alcohol Use: Yes Alcohol type: hard liquor alcohol intake frequency: holidays/special occasions only Alcohol Intake Frequency Comment: less than 1 drink/month Hx Substance Use: Yes substance use type: former substance user and marijuana Last Used Substance Other:: when she was young Review of Systems Patient denies chest pain, shortness of breath, dyspnea on exertion, fever, chills, cough, wheezing, or palpitations. Physical Exam Vital Signs Vitals BP 128/84 P 84 TEMP 98.6 SP02 97% on RA RESP 18 Physical Patient resting comfortably in chair in no acute distress, alert and oriented, responding appropriately throughout visit Full cervical extension range of motion without pain TMD < 3 finger breadths Mallampati Score 3 Dentition: several caps/crowns, denies chipped or loose teeth, implants or bridges Lungs: normal respiratory effort. Good air movement, clear throughout to auscultation, no adventitious breath sounds Cardiac: regular rate and rhythm, no murmurs noted Carotid arteries: negative bruit bilat Lab Results Anesthesia Preop Results Results Anesthesia Widget: WBC 10.23 K/ul (4.8-10.8) 12/14/23 Hgb 14.9 g/dl (12.0-16.0) 12/14/23 Hct 45.2 % (37.0-47.0) 12/14/23 Plt 346 K/uL (130-400) 12/14/23 Na 142 mmol/L (136-145) 12/14/23 K 3.7 mmol/L (3.5-5.1) 12/14/23 Cl 104 mmol/L (98-107) 12/14/23 CO2 29 mmol/L (21-32) 12/14/23 BUN 15 mg/dl (6-23) 12/14/23 Creat 1.00 mg/dl (0.6-1.2) 12/14/23 Glucose Level 84 mg/dl (70-99(Fasting)) 12/14/23 PT 11.4 Seconds (9.0-12.0) 12/14/23 PTT 25 Seconds (21-31) 12/14/23 INR 1.1 (0.9-1.1) 12/14/23 HA1c 5.4 % (4.5-5.6) 12/14/23 Urine Color Yellow 12/14/23 Urine Appearance Clear (Clear) 12/14/23 Urine pH 6.0 (4.5-7.5) 12/14/23 Urine Specific [place] 1.016 (1.000-1.030) 12/14/23 Urine Protein Negative (Negative) 12/14/23 Urine Glucose (UA) Negative (Negative) 12/14/23 Urine Ketones Negative (Negative) 12/14/23 Urine Blood Negative (Negative) 12/14/23 Urine Nitrite Negative (Negative) 12/14/23 Urine Bilirubin Negative (Negative) 12/14/23 Urine Urobilinogen Negative (Negative) 12/14/23 Urine Leukocyte Esterase 1+ (Negative) H 12/14/23 Urine WBC (Auto) 0-5 /hpf (0-5) 12/14/23 Urine RBC (Auto) 6-10 /hpf (0-2) H 12/14/23 Urine Hyaline Casts (Auto) 3-5 /lpf (0-2) H 12/14/23 Urine Epithelial Cells (Auto) 3-5 /hpf (0-2) H 12/14/23 Urine Bacteria (Auto) None Seen (None Seen) 12/14/23 Blood Type B Positive 12/14/23 Antibody Screen NEGATIVE 12/14/23 Testing Electrocardiogram Date: 12/14/23 NSR, rate 77 bpm Low voltage QRS Chest X-Ray Date: 12/14/23 1. Stable slightly prominent left suprahilar bronchovascular markings. This may be nonspecific however needs clinical correlation to rule out early congestive changes 2. Stable slight kyphotic alignment of the thoracic spine seen resulting in increased AP diameter of the chest 3. No significant new development seen. 4. Clinical correlation advised.
[2024-01-17] MEDS: ceFAZolin 2000MG 2,000 MG/15 ML SYR IV SCH ×2 (00:55→14:04)
[~2024-01-17 05:06] MED LIST changes: -ALBU18002 INH; +ALLERGY Noted to ORDERED Medication SCH; -ATROPINE SULFATE 0.1 MG/ML 5ML SYR IV PRN; -CETI10TA84 PO; -DEXAMETHASONE SOD INJ 4 MG/ML VIAL ONE; -EpHEDrine SULFATE INJ 50 MG/ML AMP IV PRN; -FENTANYL CITRATE INJ 50 MCG/1 ML 2 ML VIAL ONE; -HYDROmorphone INJ 1 MG/ML SYR IV PRN; -IBUPROFEN 600 MG TAB PO PRN; -KETOROLAC TROMETHAMINE 30 MG/ML VIAL IV. PRN; -KETOROLAC TROMETHAMINE 30 MG/ML VIAL ONE; -LABETALOL HCL IV 5 MG/ML 20ML IV PRN; -LACTATED RINGER'S 1000ML 1,000 ML IV SCH; -LIDOCAINE HCL 2% 2 ML VIAL (20MG/ML) ONE; -LISI40TA PO; -MELA1TAB5 PO; -MIDAZOLAM HCL 1 MG/ML 2ML VIAL ONE; -MONT1TAB3 PO; -OMEP40CA41 PO; -ONDANSETRON INJ 2 MG/ML 2 ML VIAL IV PRN; -ONDANSETRON INJ 2 MG/ML 2 ML VIAL ONE; -OXYCODONE/ACETAMINOPHEN 5-325 TAB PO PRN; -PHENYLEPHRINE 100MCG/ML 5ML SYR IV PRN; -PROMETHAZINE HCL INJ 12.5 MG in SODIUM CHLORIDE 0.9% 50ML 50 ML IV PRN; -PROMETHAZINE HCL INJ 25 MG in SODIUM CHLORIDE 0.9% 50ML 50 ML IV PRN; -PROPOFOL IV EMULSION 10 MG/ML 20 ML VIAL IV ONE; -SODIUM CHLORIDE 0.9% 1000ML 1,000 ML IV SCH; -SUCCINYLCHOLINE CHLORIDE 20 MG/ML 10 ML VIAL IV ONE; -SYMIN160 INH
[2024-01-17] MEDS: SODIUM CHLORIDE 0.9% 1,000 ML IV SCH (05:55)
--- NOTE | 2024-01-17 05:55 | History & Physical Bridge Note ---
<Statement entered by Trace Hodge MD - 01/17/24 06:26> oral dose of macrobid ordered as empiric treatment. Date of Service January 17, 2024 History & Physical Bridge Note I have examined the patient, reviewed the History & Physical and in the interval since the performance of the History & Physical I have noted the following changes of clinical significance: no changes noted
[2024-01-17] MEDS: LR 500ML BOLUS, THEN 15ML/HR IV SCH (05:57)
[2024-01-17] MEDS: LR 60ML/HR IV SCH (05:57)
[2024-01-17] MEDS ORDERED: ROPIV 0.5% 246mg, Ketorolac 30mg, EPINEPHrine 0.5mg in NSS INFIL SCH (06:00)
[2024-01-17] MEDS ORDERED: LR 500ML BOLUS, THEN 15ML/HR IV SCH (06:00)
[2024-01-17] MEDS ORDERED: ROPIVACAINE 0.5% 5 MG/ML 30 ML VIAL ONE (06:21)
[2024-01-17] MEDS ORDERED: BUPIVACAINE 0.5 % 5 MG/1 ML PF 10ML VIAL ONE (06:21)
[2024-01-17] MEDS: NITROFURANTOIN MONOHYDRATE 100 MG CAP PO STA (06:30)
[2024-01-17] MEDS ORDERED: PROPOFOL IV EMULSION 10 MG/ML 20 ML VIAL IV ONE ×3 (06:43→07:13)
[2024-01-17] MEDS ORDERED: ePHEDrine sulfate 50 MG/5 ML SYR ONE (06:43)
[2024-01-17] MEDS ORDERED: LIDOCAINE 2% 2 ML VIAL/AMP(20MG/ML) INFIL ONE (06:43)
[2024-01-17] MEDS ORDERED: MIDAZOLAM HCL 1 MG/ML 2ML VIAL ONE (06:44)
[2024-01-17] MEDS ORDERED: fentaNYL citrate PF 100 MCG/2 ML VIAL ONE (06:44)
[2024-01-17] MEDS: TRANEXAMIC ACID 1,000 MG **IV Pre-op IV SCH (06:52)
[2024-01-17] MEDS ORDERED: KETAMINE HCL 10MG/ML SYR ONE (07:08)
[2024-01-17] MEDS ORDERED: ePHEDrine sulfate 50 MG/ML AMP ONE (07:20)
[2024-01-17] MEDS ORDERED: PROMETHAZINE HCL INJ 25 MG/ML 1 ML VIAL ONE (07:31)
[2024-01-17] MEDS: ORTHO JOINT ANESTHETIC ONE (07:33)
[2024-01-17] MEDS: TRANEXAMIC ACID 1,000 MG **IV Intra-op IV SCH (08:06)
[2024-01-17] MEDS: ROPIVACAINE 0.5% HCL/PF 246 MG, EPINEPHrine 30MG/30ML (OR USE) 0.5 MG in SODIUM CHLORID... INFIL SCH (08:21)
--- NOTE | 2024-01-17 08:32 | Post Operative Brief Note ---
Immediate Post Op Note Date of Surgery January 17, 2024 Pre & Post Diagnosis Operation Date: 01/17/24 07:00 Pre-Op Diagnosis: Right Knee Degenerative Joint Disease Post-Op Diagnosis: Right Knee Degenerative Joint Disease I identified the patient and participated in the time-out.: Yes Procedure Operation Date: 01/17/24 07:00 Actual Procedures p Right cemented total Knee Arthroplasty(Right) - Trace Hodge MD Surgeon Trace Hodge MD Quarry Supervisor Caryn/CINDY DEGROOT ND Estimated Blood Loss 25 Findings Consistent with Post-Op Diagnosis Severe patellofemoral disease grade 4 trochlea moderate chondromalacia patella grade 4 disease weightbearing surface medial femoral condyle. Fluids See anesthesia report Complications None
--- NOTE | 2024-01-17 08:33 | Orthopedic Progress Note ---
Date of Service January 17, 2024 Orthopedic Progress Note Patient underwent right total knee replacement. Tolerated well. Denies chest pain shortness of breath fever chills nausea vomiting headache. Vital signs are stable she is afebrile. Neurovascular check limited by spinal. X-rays pending. Family contacted.
--- NOTE | 2024-01-17 08:36 | Operative Report ---
Post Operative Report Pre & Post Diagnosis Operation Date: 01/17/24 07:00 Pre-Op Diagnosis: Right Knee Degenerative Joint Disease Post-Op Diagnosis: Right Knee Degenerative Joint Disease I identified the patient and participated in the time-out.: Yes Procedure Operation Date: 01/17/24 07:00 Actual Procedures p Right Total Knee Arthroplasty(Right) - Trace Hodge MD Surgeon Trace Hodge MD Purchasing Associate Caryn/CINDY DEGROOT ND Estimated Blood Loss 25 Findings Consistent with Post-Op Diagnosis Severe patellofemoral disease advanced medial compartment disease marginal osteophytes tricompartmentally right knee Fluids See anesthesia report Specimens Bone pathology Drains None Complications None Indications Severe pain failed conservative management patellofemoral disease grade 4 by x- ray medial compartment grade 3+ by x-ray Description of Procedure After the patient was appropriate notified site verified consent verified antibiotics confirmed to be given the right lower extremity was prepped and draped in his routine fashion. Tourniquet was inflated to 275 mmHg after exsanguination limb with a rubber band for total of 51 minutes. Midline exposure was utilized parapatellar arthrotomy performed synovectomy completed osteophytes resected Marginal osteophytes resected grade 4 in the trochlea with grooving and significant lateral tilt has grade 3+ to 4 or in the patella and grade 3+ deformed medial compartment. Once the cruciates were resected the tibia was able to be subluxated. The femur was then sized to a 3 and appropriate distal cutting block applied and the cutting block from distal cut was 11 mm and then the distal femoral cutting block was applied and a size 3 fit that the anterior posterior condylar cuts and chamfer cuts were then made. The tibia was then resected 4 mm. That was sized to a 3 as well. Extension gap and flexion gap were excellent. Box cut was then made on the femur and a size 3 fit well. The seating of the tibial trial was then made and the size 3 fit well the size 7 spacer was excellent extension flexion arc the patella tracked well. The patella was quite small so the adapter was placed and minimal resection was made the 14 mm. 35 patella seating holes were then made and trial seated and tracked well. Ortho mix was then injected all about the knee trial elements were then removed the wound was irrigated with Pulsavac Betadine soak for 2 minutes and then after that the permanent cemented in position after 12 minutes the tourniquet was deflated the extra dose of TXA was given. There was minimal bleeding. After 14 minutes the trial spacer was removed minimal cement removal was required bone wax was applied around some of the raw surface of the bone and then the permanent liner seated after was irrigated 1 final time the knee reduced and closed with #2 Vicryl 2-0 Vicryl and stainless to clips appropriate dressing applied the patient transferred recovery in satisfactory descending tolerated the procedure well. Summary of implants ATT UNE DePuy [employer]ynthes total knee system size 3 right femur posterior cruciate substituting size 3 rotating platform tray size 35 patella size 3 x 7 rotating platform posterior cruciate stabilized insert 2 bags of Palacos G cement. EBL was 25 cc crystalloid per anesthesia bone pathology pending DVT prophylaxis per protocol. I attest to the content of the Intraoperative Record and any orders documented therein. Any exceptions are noted below.
--- NOTE | 2024-01-17 08:38 | Discharge Summary ---
Date of Service January 18, 2024 Admission HPI Per Admitting Provider Chronic right knee pain failed conservative management over years. Principal Diagnosis Osteoarthritis right knee. Discharge Data Allergies Allergy/AdvReac Type Severity Reaction Status Date / Time meloxicam [From Mobic] Allergy Severe Difficulty Verified 01/17/24 05:34 Breathing aspirin Allergy Intermediate Hives, Verified 01/17/24 05:34 asthma symptoms celecoxib [From Celebrex] Allergy Intermediate Hives Verified 01/17/24 05:34 adhesive tape Allergy Mild Rash Verified 01/17/24 05:34 Penicillins Allergy Unknown Unknown Verified 01/17/24 05:34 reaction Vaccinations None Consultations None Procedures Performed Operation Date: 01/17/24 07:00 Actual Procedures p Right Total Knee Arthroplasty(Right) - Trace Hodge MD Ordered Studies 01/17/24 05:00 US - OR guided needle placemen Routine Hospital Course (1) Status post right knee replacement: Care plan for total knee replacement Total Time Total Time Spent Total Time Spent (In Minutes): 5 Discharge Plan Discharge Items Reason For Visit: Right Knee Osteoarthritis Discharge Diagnosis: Status post right total knee replacement Follow-up/Referrals: Komal Hand DO [Primary Care Provider] - Alvin Silva PA-C [Physician Medical Laboratory Technical Officer] - 02/01/24 3:30 pm Addtl Attending Provider Instructions: New Medicine: * You will likely be taking one or more of these medications: 1. Percocet - Take, as directed, when you need it, every four to six hours to control your pain. 2. Iron Sulfate - Take 1x each day for the month after surgery to help you replace the blood lost during surgery. 3. Eliquis - Thins your blood to lessen the chance of forming a blood clot * The most common side effects of pain medicine and iron are nausea and constipation. If nausea or constipation is too much of a problem or if you have any questions about your new medicines or doses, call [facility] at . We will try to help you manage these issues. "VERY IMPORTANT TO READ AND REVIEW" Blood Clots and Blood Thinning Medicine: * You are given Eliquis during the immediate post-operative period to lessen the risk of blood clots forming in your legs and/or lungs. It is usually given for 4 weeks after surgery. Pain: * The immediate post-operative period after knee replacement surgery is often quite painful. * You are given a prescription for pain medicine. You should take it, as directed, when you need it, especially before physical therapy and before going to bed. Pain that interferes with sleep is very common and can last several months. * You will likely need pain medicine for the first four to six weeks. It will not stop all of the pain. The pain will lessen and as you feel better, you may change to milder pain medicine such as Tylenol. * The most common side effects of pain medicine are nausea and constipation, so don't take more than you need. Physical Therapy: * You will have physical therapy two or three times each week for four to six weeks after your surgery in order to regain your knee range of motion and to retrain your knee to work properly. * It is just as important to make sure you are getting your knee perfectly straight as it is to regain your knee bend. * Taking a pain pill an hour before therapy can help you have a more productive and comfortable therapy session if needed. Home Exercise: * You were shown a series of exercises (heel props, heel slides, etc.) in the hospital. Do these exercises three to four times each day including the exercises you were shown in physical therapy. Walking: * Get up and walk several times each day. For the first four weeks, try not to stand or walk for more than one hour at a time. If you do stand or walk for more than one hour, you will not hurt anything, but your knee and leg will likely swell. * As you feel comfortable, you may change from the walker or crutches to a cane and then to independent walking. SELF CARE INSTRUCTIONS AFTER TOTAL KNEE REPLACEMENT A. You may need to continue a physical therapy program after discharge from the hospital. There are several options available to you. Your doctor will assist you in selecting the best one for you. 1. An out-patient facility 2 to 3 times a week for therapy or home therapy. 2. Continue working on all exercises taught to you in the hospital. Your goals should be to increase bending of your knee to 90 degrees and beyond and to fully straighten your knee. B. You may progress at your own pace from walking with a walker or crutches to a cane; then to no assistive devices. C. Make walking a part of your daily routine. Be up as much as comfortable with rest periods throughout the day. Rest with leg elevation is very important. Use the ice wrap frequently for the first 3-4 weeks. D. There are no restrictions on activities. You may ride in a car, shop, participate in enroute controller and all social activities. E. Wear the long elastic stockings (ALEJANDRO hose) 20 hours a day for six weeks after surgery. They can be removed several times a day for laundering and for a shower. F. Do not place a pillow behind your knee when resting. A pillow at your ankle is okay. G. You may return to previous diet. VERY IMPORTANT TO READ AND REVIEW A. Take Eliquis (blood thinning medication) as directed by your doctor. B. There are a few signs you need to watch for after you are home. Call [facility] if you notice any of the followin. Increased severe knee pain. Some pain is expected especially when you exercise. 2. Increased swelling in your leg or knee; pain or swelling of the calf muscle in either lower leg. 3. Any fluid drainage from the incision. 4. Shortness of breath or chest pain. C. Please call [facility] at if you have any concerns or questions about your operation or recovery. The doctor or his nurse will return your call promptly. D. You must take antibiotics before dental work, bladder, bowel or other surgery. Call the office to obtain a prescription at least 2 days prior to your appointment. * CALL IF INCREASED PAIN, REDNESS, DRAINAGE OR FEVER GREATER THAT 101. * Sutures should be removed 12-14 days after surgery unless you are on chronic steroids, then it will be 14-18 days after surgery. Call your doctor if: * Temperature above 101 degrees F. * Pain not relieved by pain medicine ordered. * Increased drainage or redness from incision. * Notify your doctor with any questions or concerns. MEDICATIONS: * Please take your prescriptions as instructed at your pre-op appointment and/or see medication discharge instructions listed above. * If concerns develop, call your physician's office at . SPECIAL CARE INSTRUCTIONS: * Ice/Elevate as instructed. * Keep dressing clean, dry, intact. * Your surgical extremity may be discolored due to prepping agents used on the skin. A bluish-green tint is a normal variant and should not cause alarm. Call your doctor at [phone] if: * Temperature above 101 degrees * Pain not relieved by pain medicine ordered * There is increased drainage or redness from any incision * You have any unanswered questions, problems or concerns. FOLLOW UP VISIT: * If not already scheduled, please call the office at to schedule a follow-up appointment. Use your knee immobilizer when out of bed and Monday. It can be discontinued entirely on Monday morning. Use your walker for ambulation Start your Eliquis evening with dinner. Take it 2x day x 4 weeks to prevent blood clots Leave the leg dressings in place through the weekend. They can be changed on Monday if needed for soiling Call the offce with any other concerns follow up in the office in 2 weeks as scheduled for staple removal Stand-Alone Forms: My [facility] Medications and DC Order Prescriptions: No Action montelukast 10 mg tablet 10 mg PO HS Qty: 90 3RF Rx Instructions: TAKE ONE TABLET BY MOUTH AT BEDTIME metformin 500 mg tablet 1,000 mg PO HS Qty: 180 3RF omeprazole 40 mg capsule,delayed release(DR/EC) 40 mg PO HS Qty: 90 3RF (DME) syringe with needle, safety 3 mL 25 gauge x 5/8" syringe See Rx Instructions .ROUTE .MEDSUPPLY Qty: 100 0RF Rx Instructions: As directed Zepbound 5 mg/0.5 mL pen injector 5 mg subcut Q7D Qty: 2 2RF Patient Comments: saturdays indomethacin 50 mg capsule 50 mg PO HS Qty: 30 6RF Rx Instructions: administer with food or milk cyanocobalamin (vitamin B-12) 1,000 mcg/mL solution 1,000 mcg subcut MONTHLY PRN (Reason: B12) 90 Days Qty: 3 3RF Patient Comments: no longer taking hydrochlorothiazide 25 mg tablet 25 mg PO DAILY Qty: 90 3RF Trelegy Ellipta 200-62.5-25 mcg blister with device 1 inh inhalation DAILY Qty: 60 2RF cetirizine [Zyrtec] 10 mg Tablet 10 mg PO HS triamcinolone acetonide 0.5 % ointment 1 applic topical DAILY PRN (Reason: Rash) Rx Instructions: Use daily at bedtime for 2-4 weeks the twice a week at bedtime. Use generous amount. nystatin-triamcinolone 100,000-0.1 unit/g-% cream 1 applic topical BID PRN (Reason: Rash) Rx Instructions: use under breasts and perineal area bid for 7-10 days PRN valacyclovir [Valtrex] 500 mg tablet 500 mg PO HS albuterol sulfate 90 mcg/actuation HFA aerosol inhaler 2 puff inhalation Q4H PRN (Reason: SOB) Rx Instructions: inhale 2 puffs by mouth every 4 hours as needed for shortness of breath or wheezing. bupropion HCl [Wellbutrin XL] 300 mg tablet extended release 24 hr 300 mg PO QAM Admission Data Admit Date/Time: 01/17/24 08:44 Attending Provider: Trace Hodge Admit Provider: Trace Hodge Primary Care Provider: Komal Hand Other Providers: [facility],Home Healthcare
[2024-01-17] MEDS ORDERED: diphenhydrAMINE 50 MG/ML VIAL IV PRN (08:43)
[2024-01-17] MEDS ORDERED: NALOXONE HCL 0.4 MG/1 ML VIAL/CARP IV PRN (08:43)
[2024-01-17] MEDS ORDERED: METOCLOPRAMIDE HCL INJ 5 MG/ML 2 ML VIAL IV PRN (08:43)
[2024-01-17] MEDS ORDERED: bisacodyL 10 MG SUPP PR PRN (08:43)
[2024-01-17] MEDS ORDERED: MAGNESIUM HYDROXIDE SUSP 30 ML UDC PO PRN (08:43)
--- NOTE | 2024-01-17 08:46 | Operative Report ---
Post Operative Report Pre & Post Diagnosis Operation Date: 01/17/24 07:00 Pre-Op Diagnosis: Right Knee Degenerative Joint Disease Post-Op Diagnosis: Right Knee Degenerative Joint Disease I identified the patient and participated in the time-out.: Yes Procedure Operation Date: 01/17/24 07:00 Actual Procedures p Right Total Knee Arthroplasty(Right) - Trace Hodge MD Surgeon Trace Hodge MD Live In Caregiver Caryn/Obdulio Estimated Blood Loss 25 Findings Consistent with Post-Op Diagnosis Specimens Bone pathology Description of Procedure Patient was brought to the operative suite where she underwent sedation after undergoing spinal anesthesia preoperatively. The right lower extremity was prepped and draped in usual sterile fashion. A surgical timeout was performed. The patient underwent a right total knee arthroplasty, please see Dr. Hodge's operative report for full details. I was present and assisted with patient positioning, limb positioning, soft tissue retraction, hemostasis, surgical approach, bony resection, hardware placement, wound closure, postoperative dressing placement. The patient was awakened taken to the recovery room in satisfactory condition. I attest to the content of the Intraoperative Record and any orders documented therein. Any exceptions are noted below.
[2024-01-17] MEDS ORDERED: ATROPINE SULFATE 0.1 MG/ML 10ML SYR IV PRN (08:47)
[2024-01-17] MEDS ORDERED: ONDANSETRON INJ 2 MG/ML 2 ML VIAL IV PRN (08:47)
[2024-01-17] MEDS ORDERED: DROPERIDOL 5 MG/2 ML VIAL IV PRN (08:47)
[2024-01-17] MEDS ORDERED: ePHEDrine sulfate 50 MG/ML AMP IV PRN (08:47)
[2024-01-17] MEDS ORDERED: VANCOMYCIN CONSULT ACTIVE PRN (08:52)
[2024-01-17] MEDS: VANCOMYCIN HCL 2,000 MG in SODIUM CHLORIDE 0.9% 500 ML IV ONE (09:08)
[2024-01-17] MEDS: fentaNYL citrate PF 100 MCG/2 ML VIAL IV PRN (09:22)
--- NOTE | 2024-01-17 09:31 | XRay Report ---
XR knee RT 1 or 2V routine HISTORY: 58 years-old Female S/P R TKA right knee arthroplasty COMPARISON: 05/29/2023 TECHNIQUE: 2 views of the right knee FINDINGS: Satisfactory alignment the total joint arthroplasty. Anterior midline skin daysi with expected post operative soft tissue swelling and deep tissue air. No acute fracture or unexpected opaque foreign jonah dy. IMPRESSION: Satisfactory alignment of the total joint arthroplasty. ACT 112: Negative or not required by law. The above report was generated using voice recognition software. It may contain grammatical, syntax o r spelling errors. Electronically signed by: Gerard Han M.D. 01/17/2024 9:30 AM
[2024-01-17] MEDS ORDERED: PHENYLEPHRINE 100MCG/ML 5ML SYR ONE (09:39)
--- NOTE | 2024-01-17 09:52 | Anesthesiology Progress Note ---
Date of Service January 17, 2024 Anesthesia Post Procedure Vital Signs Vital Signs: Temp Pulse Resp BP Pulse Ox O2 Del Method O2 Flow Rate 01/17/24 09:35 81 17 112/89 95 Nasal Cannula 2 01/17/24 09:20 36.5 C 71 15 104/81 94 Room Air 01/17/24 09:10 79 17 127/83 96 Room Air 01/17/24 09:00 76 21 118/80 95 Room Air 01/17/24 08:50 74 21 105/78 97 Oxymask 4 01/17/24 08:43 36.4 C L 80 18 151/100 H 95 Oxymask 4 01/17/24 05:32 37 C 95 H 20 122/81 99 Room Air Pain Intensity Right Knee: Pain Intensity: 3 Right Ankle: Pain Intensity: 3 Transfer of Care Handoff Completed per policy Notes Mental Status: alert / awake / arousable and participated in evaluation Nausea / Vomiting: adequately controlled Pain: adequately controlled Airway Patency, RR, SpO2: stable & adequate BP & HR: stable & adequate Hydration State: stable & adequate Anesthetic Complications: no major complications apparent and Pt Satisfied with anesthetic care
[2024-01-17] MEDS ORDERED: ALBUTEROL HFA 8 GM INHALER INH PRN (09:59)
[2024-01-17] MEDS ORDERED: NON-FORMULARY MEDICATION (Fluticasone-Umeclidin-Vilanter [Trelegy Ellipta] 200-62.5-25 mcg INH SCH (09:59)
[2024-01-17] MEDS: HYDROmorphone INJ 1 MG/ML SYRINGE IV PRN (10:25)
[2024-01-17] MEDS: UMECLIDINIUM/VILANTEROL 62.5/25MCG 7 PUFFS/INHALER INH SCH (10:57)
[2024-01-17] MEDS: MULTIVITAMIN TAB PO SCH (10:57)
[2024-01-17] MEDS: hydroCHLOROthiazide 25 MG TAB PO SCH (10:57)
[2024-01-17] MEDS: DOCUSATE SODIUM 100 MG CAP PO SCH (10:57)
[2024-01-17] MEDS: buPROPion XL 300 MG TABCR PO SCH (10:57)
[2024-01-17] MEDS: FLUTICASONE FUROATE 200MCG 14 PUFFS/INHALER INH SCH (10:57)
[2024-01-17] MEDS: HYDROmorphone INJ 0.5 MG/0.5 ML SYR IV PRN (11:00)
[2024-01-17] MEDS: oxyCODONE HCL IR 5 MG TAB (IMMEDIATE RELEASE) PO PRN (11:00)
--- NOTE | 2024-01-17 11:52 | Orthopedic Progress Note ---
Date of Service January 17, 2024 Assessment & Plan Admission and Anticipated Discharge Date Admission Date: January 17, 2024 Subjective Postop check up on the floor. She denies any chest pain shortness of breath fever chills nausea vomiting or headache. Had minor nausea that passed about an hour and a half ago. She did not take any medication. Vital signs are stable she is afebrile. Neurovascular check femoral sciatic nerve is normal. Can do good ankle inversion eversion flexion and extension and can do a straight leg raise with good quad set. Postop x-rays look excellent. Assessment doing well status post right total knee replacement continue care pathway discharge home tomorrow. Initiate anticoagulation tomorrow Macrobid 100 mg p.o. twice daily for low-grade UTI findings on screening but relatively no symptoms. Treat for 5 days. Results & Data Vital Signs (Past 12 Hours) Vital Signs Temp Pulse Resp BP Pulse Ox O2 Del Method O2 Flow Rate 01/17/24 10:52 36.6 C 80 17 119/72 99 Nasal Cannula 01/17/24 10:30 36.5 C 76 16 115/75 100 Nasal Cannula 2 01/17/24 10:00 36.5 C 72 16 121/82 100 Nasal Cannula 2 01/17/24 09:35 81 17 112/89 95 Nasal Cannula 2 01/17/24 09:20 36.5 C 71 15 104/81 94 Room Air 01/17/24 09:10 79 17 127/83 96 Room Air 01/17/24 09:00 76 21 118/80 95 Room Air 01/17/24 08:50 74 21 105/78 97 Oxymask 4 01/17/24 08:43 36.4 C L 80 18 151/100 H 95 Oxymask 4 01/17/24 05:32 37 C 95 H 20 122/81 99 Room Air
[2024-01-17] MEDS: ONDANSETRON INJ 2 MG/ML 2 ML VIAL IV PRN (12:13)
[2024-01-17] MEDS: ACETAMINOPHEN 500 MG TAB PO SCH (13:30)
[2024-01-17] MEDS ORDERED: PROMETHAZINE HCL 25 MG TAB PO PRN (18:06)
[2024-01-17] MEDS: HYDROmorphone HCL 2 MG TAB PO PRN (19:21)
[2024-01-17] MEDS: SCOPOLAMINE 1 MG/72 HR TDSY PATCH TD SCH (19:22)
[2024-01-17] MEDS: PANTOprazole 40 MG TAB PO SCH (19:26)
[2024-01-17] MEDS: NITROFURANTOIN MONOHYDRATE 100 MG CAP PO SCH (19:26)
[2024-01-17] MEDS: MONTELUKAST SODIUM 10 MG TABLET PO SCH (19:27)
[2024-01-17] MEDS: SENNA 8.6 MG TAB PO SCH (20:21)
[2024-01-17] MEDS ORDERED: CETIRIZINE HCL 10 MG TABLET PO SCH (21:00)
[2024-01-17] MEDS: dexAMETHasone 4 MG TAB PO ONE (21:15)
[2024-01-17] MEDS: valACYclovir HCL 500 MG TABLET PO ONE (21:15)
[2024-01-17] MEDS: INDOMETHACIN 25 MG CAP PO STA (21:15)
[2024-01-17] MEDS: CHECK SCOPOLAMINE PATCH PLACEMENT SCH (23:21)
[2024-01-18 03:19] VITALS: RESP 16
[2024-01-18 04:11] LABS: Hemoglobin 12.4 g/dl (12.0-16.0); Mean Corpuscular Hemoglobin 29.7 pg (25.0-34.0); Mean Corpuscular Hgb Conc 33.5 g/dL (32.0-36.0); Mean Corpuscular Volume 88.7 fL (80.0-100.0); Mean Platelet Volume 10.9 fL (9.4-12.4); Platelet Count 267 K/uL (130-400); RDW Coefficient of Variation 12.7 % (11.5-14.5); RDW Standard Deviation 41.1 fL (36.4-46.3); Red Blood Count 4.17 M/uL (4.20-5.40); White Blood Count 10.67 K/ul (4.8-10.8)
[2024-01-18 04:26] LABS: BUN Creatinine Ratio 9.8 (10-20); Calcium 8.8 mg/dl (8.6-10.3); Creatinine Clr Calc Pharmacy 68.5 ml/min; Potassium 4.3 mmol/L (3.5-5.1)
--- NOTE | 2024-01-18 06:51 | Orthopedic Progress Note ---
Date of Service January 18, 2024 Assessment & Plan Admission and Anticipated Discharge Date Admission Date: January 17, 2024 Orthopedic Progress Note Postop day #1 status post right total knee replacement. Dispo done patient actually got some sleep Pain issue has been resolved. She is doing well on the oral Dilaudid. Vital signs are stable she is afebrile. Neurovascular check femoral sciatic nerve is good. She can do straight leg raise ankle pumps are good calves are nontender bilaterally. A.m. labs are excellent. Assessment doing well status post right total knee replacement. Discharge home today. Begin her anticoagulation today. Discharge on p.o. Dilaudid 2 mg 1 tablet p.o. every 3-4 hours as needed. Give her 7-day supply. Emphasized the need to take Tylenol 1000 mg p.o. 3 times daily as well.
[2024-01-18 07:07] VITALS: BP 109/73; TEMP 98.2; O2SAT 92
[2024-01-18] MEDS: dexAMETHasone 4 MG TAB PO SCH (07:38)
[2024-01-18] MEDS: APIXABAN 2.5 MG TAB PO SCH (08:42)
[2024-01-18 10:41] VITALS: PULSE 89
== END 2024-01-18 11:05 | disposition home health service (06) ==
LOC: ASU 05:06 → 3E 05:06